=== PATIENT | female | born 1965 | race African-American/Black ===

== ENCOUNTER 2017-03-06 14:30 | Observation (INO) | payer BC ==
[2017-03-06] MEDS ORDERED: Nitroglycerin 0.4 MG TAB (25 Tab Bottle) ONE (14:50)
[2017-03-06 14:59] LABS: #Eosinphils 0.1 thou/uL (0.0-0.7); #Lymphocytes 2.5 thou/uL (1.20-3.40); #Monocytes 0.3 thou/uL (0.11-0.59); #Neutrophils 2.1 thou/uL (1.40-6.50); %Basophils 0.9 % (0.0-1.0); %Eosinophils 2.5 % (0.0-10.0); %Lymphocytes 49.7 % (21.0-51.0); %Monocytes 5.9 % (0.0-10.0); Hematocrit 35.5 % (36.0-47.0); Mean Platelet Volume 7.2 fL (7.4-10.4); Red Blood Cell (RBC) Count 4.07 mill/uL (4.20-5.40); White Blood Cell (WBC) Count 5.1 thou/uL (4.8-10.8)
[2017-03-06 15:24] LABS: ALT (SGPT) 27 U/L (8-55); AST (SGOT) 28 U/L (5-34); Alkaline Phosphatase 70 U/L (40-150); Anion Gap 15 mmol/L (10-20); BUN (Urea Nitrogen) 15 mg/dL (9.8-20.1); Bilirubin, Total 0.2 mg/dL (0.2-1.2); CK (CPK) 1013 U/L (29-168); Calc. Creatinine Clearance 0 mL/min (70-130); Calcium 9.4 mg/dL (7.8-10.44); Carbon Dioxide 22 mmol/L (22-29); Chloride 108 mmol/L (98-107); Estimated GFR-MDRD 78; Globulin 3.3 g/dL (2.4-3.5); Lipase 28 U/L (8-78); PTT 28.8 SEC (22.9-36.1); Protein, Total 7.5 g/dL (6.0-8.3); Prothrombin Time 13.3 SEC (12.0-14.7)
--- NOTE | 2017-03-06 15:26 | RAD ---
PORTABLE CHEST ONE VIEW: Date: 03-06-17 Time: 2:38 p.m. History: Chest pain. FINDINGS: Comparison is made with exam of 09-06-16. The heart size is normal. No focal areas of consolidation, pneumothorax, nidhi pulmonary edema or pl eural effusions seen. There are degenerative changes in the spine. IMPRESSION: No acute process. POS: [facility]
[2017-03-06 15:28] LABS: Troponin I Less than 0.010 ng/mL (< 0.028)
[2017-03-06] MEDS ORDERED: Nitroglycerin 2% Ointment 1 INCH/1 GM Packet ONE (15:35)
[2017-03-06] MEDS ORDERED: Ondansetron HCl/PF 4 MG/2 ML Vial ONE (15:35)
[2017-03-06] MEDS ORDERED: Morphine Sulfate 2 MG/ML SYRINGE ONE (15:37)
--- NOTE | 2017-03-06 17:04 | HP ---
PRIMARY CARE PHYSICIAN: Maria Luisa Lackey M.D. REASON FOR ADMISSION: Chest pain. HISTORY OF PRESENT ILLNESS: A 51-year-old -Congolese female with history of hypertension, obe sity, gastroesophageal reflux disease, who came to the emergency room with complaint of chest pain w hich is left-sided in location underneath of left breast. This pain started when she was at work. 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 Pain was getting worse with stretching of left upper extremity. She denies any radiation of pain to the left upper extremity, but whenever she was moving left upper extremity she was hurting in the left side of chest. She denies any associated n ausea, vomiting, or diaphoresis. She reports that whenever she takes a deep breath and she moves he r chest at that time she hurts. She denies any reproducibility of pain over left side. She denies any headache. She denies any focal motor symptoms. She denies any shortness of breath. She denies any palpitation, dizziness or syncope. Her intensity of pain when it started at that time it was a bout 8 x 10, but after emergency room treatment, the pain reduced to 4/10. When she presented to em ergency room, she was hypertensive with her blood pressure 218/135. Patient reports that she took a ll her blood pressure medicines today. Patient denies any fever or chills. She denies any cough. She denies any calf tenderness. She den ies any hemoptysis. She denies any orthopnea, PND or leg swelling. This patient had a negative stress test in August 2015, and this patient also had echocardiography in October 2015; at that time, it showed diastolic dysfunction. This patient's routine blood tests in the emergency room was unremarkable. She had elevated total CK. PAST MEDICAL HISTORY: Hypertension, poorly controlled, medication noncompliance, gastroesophageal r eflux disease, dyslipidemia, diastolic dysfunction, and obesity. PAST SURGICAL HISTORY: Hysterectomy, cholecystectomy, . PAST PSYCHIATRIC HISTORY: Reviewed and negative. REVIEW OF SYSTEMS: Please see my HPI for pertinent positives and negatives. All other review of sy stems reviewed and negative except as mentioned in the HPI. Constitutional: Weight loss or gain, ability to conduct usual activities. Skin: Rash, itching. Eyes: Double vision, pain. ENT/Mouth: Nose bleeding, neck stiffness, pain, tenderness. Cardiovascular: Palpitations, dyspnea on exertion, orthopnea. Respiratory: Shortness of breath, wheezing, cough, hemoptysis, fever or night sweats. Gastrointestinal: Poor appetite, abdominal pain, heartburn, nausea, vomiting, constipation, or diar gayathri. Genitourinary: Urgency, frequency, dysuria, nocturia. Musculoskeletal: Pain, swelling. Neurologic/Psychiatric: Anxiety, depression. Allergy/Immunologic: Skin rash, bleeding tendency. ALLERGIES: No known drug allergies. CURRENT HOME MEDICATIONS: Amlodipine 5 mg p.o. daily, Toprol 50 mg p.o. daily, aspirin 325 mg p.o. daily, Nexium 20 mg p.o. daily, albuterol sulfate inhalation as needed basis, clonidine 0.1 mg as ne eded basis for high blood pressure and tramadol 50 mg q.6 hourly p.r.n. for pain. EMERGENCY ROOM COURSE: Patient is given Zofran 4 mg, morphine 2 mg, nitropatch, IV fluids 500 mL, a spirin 324 mg and nitroglycerin sublingual. SOCIAL HISTORY: Patient lives in [place], [place]. 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 She denies any tobacco, alcohol or illicit drug abuse. FAMILY HISTORY: Hypertension runs among several family members. ALLERGIES: No known drug allergy. PHYSICAL EXAMINATION: VITAL SIGNS: On arrival, blood pressure 218/135, pulse 97, respiratory rate 18, temperature 98.1, s aturation 100% on room air and weight 102 kilograms. GENERAL: Patient is currently alert, awake, in no obvious acute distress. HEAD: Normocephalic, atraumatic. EYES: Pupils round, reactive to light. Extraocular muscles intact. ENT: Oropharynx within normal limits. Moist mucous membranes. No oral lesions. No pharyngeal tiffani thema. No exudate. NECK: Supple. Range of motion is normal. No meningeal signs of irritation. LUNGS: Clear to auscultation without any rhonchi or rales. CARDIAC: S1, S2 regular without any murmur. ABDOMEN: Soft, bowel sounds present, obesity present. No suprapubic tenderness. No organomegaly, no mass, no peritoneal sign. No guarding. No rigidity. No rebound. BACK EXAMINATION: Unremarkable. No CVA tenderness. EXTREMITIES: Upper extremity passive movement of all joints are normal. Lower extremities: No savannah ma. Good peripheral pulsation. SKIN: No skin rash. PSYCHIATRIC: Normal affect. HEMATOLOGICAL SYSTEM: No lymphadenopathy. NEUROLOGIC: Nonfocal examination. The patient moves all 4 limbs. Plantar bilateral flexor. SIGNIFICANT LABS: 1. EKG based on my review reveals normal sinus rhythm, nonspecific ST-T changes. Chest x-ray based on my review, no acute cardiopulmonary process. 2. CBC: WBC 5.1, hemoglobin 11.7, platelet 224,000. INR 1.0. 3. BMP: Sodium 141, potassium 3.7, chloride 108, carbon dioxide 22, BUN 15, creatinine 0.91, gluco se 108, calcium 9.4, magnesium 2.0. 4. LFT: AST 28, ALT 27, alkaline phosphatase 70. CK 1013, CK-MB 6.1, troponin less than 0.010. B DISPENSING AUDIOLOGIST 55.1, albumin 4.2, lipase 28. 5. Chest x-ray based on my review, no acute cardiopulmonary process. Stress test done in 08/2015 w as normal. Echocardiography showed diastolic dysfunction, October of 10/2015. ASSESSMENT AND PLAN/IMPRESSION: 1. Acute chest pain. This patient has left-sided chest pain, which is pleuritic in nature and romy ent's pain also gets worse with movement of the left upper extremity. This patient does not have an y reproducibility. This patient also had elevated total CK, but CK-MB and troponin is negative. EK G is not showing any acute ischemic changes. This patient's chest pain description is atypical and unexplained. At this point for further evaluation, we will do D-dimer and if D-dimer is abnormal, t hen we will do a CT angio to rule out thromboembolic disorder. We will do serial cardiac enzymes; a nd if serial cardiac enzymes are negative, then we will perform exercise Cardiolite stress test to r ule out underlying ischemia. We will check lipid profile tomorrow morning. Patient's chest pain is also explained by hypertension uncontrolled. 2. Hypertension with hypertensive urgency and hypertension chronically uncontrolled. At this point , I will start with amlodipine 5 mg p.o. daily; and if blood pressure is remaining high, then we margie l change to amlodipine to 10 mg p.o. daily. We will continue Toprol-XL 50 mg p[address] daily tomorrow af ter stress test. Meanwhile, we will use clonidine p.r.n. basis, hydralazine on p.r.n. basis. This patient may need a hydralazine upon discharge to better control her blood pressure. We will also co ntinue with lisinopril 10 mg p.o. daily. 3. Obesity. Dietary education given, weight loss education given. Healthy lifestyle measures disc ussed with the patient. 4. Anemia, normocytic, normochromic. We will continue with ferrous sulfate 325 mg p.o. daily. 5. Rhabdomyolysis. We will hold statin therapy. We will repeat total CK again tomorrow. Patient is given hydration orally. 6. Gastroesophageal reflux disease. We will continue Protonix 40 mg p.o. daily. 7. Deep venous thrombosis prophylaxis not needed because we are expecting discharge in 24 hours. 8. Gastrointestinal prophylaxis, Protonix 40 mg p.o. daily. CODE STATUS: Patient is full code. Disposition plan based on above-mentioned investigation results within 24 hours. Plan of care discu ssed with the patient in detail.
[2017-03-06] MEDS ORDERED: cloNIDine HCl 0.1 MG TAB PO PRN (17:40)
[2017-03-06] MEDS ORDERED: Artificial Tears 18 DROP/0.9 ML EA EYE PRN (17:40)
[2017-03-06] MEDS ORDERED: Senokot 8.6 MG TAB PO PRN (17:40)
[2017-03-06] MEDS ORDERED: Acetaminophen 325 MG TAB PO PRN (17:40)
[2017-03-06] MEDS ORDERED: Loperamide HCl 2 MG CAP PO PRN (17:40)
[2017-03-06] MEDS ORDERED: Loratadine 10 MG TAB PO PRN (17:40)
[2017-03-06] MEDS ORDERED: Milk Of Magnesia 30 ML UDCUP PO PRN (17:40)
[2017-03-06] MEDS ORDERED: Eucerin (Mineral Oil/Petrolatum,White) 30 gm Jar TOP PRN (17:40)
[2017-03-06] MEDS ORDERED: Sodium Chloride 0.65% Nasal 44 ML BOT EA NARE PRN (17:40)
[2017-03-06] MEDS ORDERED: Nitroglycerin 0.4 MG TAB (25 Tab Bottle) SL PRN (17:40)
[2017-03-06] MEDS ORDERED: Zolpidem Tartrate 5 MG TAB PO PRN (17:40)
[2017-03-06] MEDS ORDERED: Diabetic Tussin 200 MG/10 ML UDCUP PO PRN (17:40)
[2017-03-06] MEDS ORDERED: Mag-Al 1200 mg/1200 mg/30 ML UDCUP PO PRN (17:40)
[2017-03-06 17:51] VITALS: BMI 32.1
[2017-03-06 18:38] LABS: Troponin I Less than 0.010 ng/mL (< 0.028)
[2017-03-06] MEDS: HYDROcodone/Acetaminophen 10/325 mg Tablet PO PRN ×2 (20:06→23:45)
[2017-03-06] MEDS: Ondansetron HCl/PF 4 MG/2 ML Vial IVP PRN (20:26)
[2017-03-06 21:35] LABS: Troponin I Less than 0.010 ng/mL (< 0.028)
[2017-03-06] MEDS ORDERED: Ondansetron ODT 4 MG TAB PO PRN (21:45)
[2017-03-07] MEDS: Nitroglycerin 2% Ointment 1 INCH/1 GM Packet TOP SCH ×3 (00:50→14:42)
--- NOTE | 2017-03-07 07:58 | PDOC.PN ---
- Subjective Encounter Start Date: 03/07/17 Encounter Start Time: 07:56 Subjective: CP resolved -: No SHINE/palpitations/SOB/nausea/diaphoresis - Objective Resuscitation Status: Resuscitation Status FULL:Full Resuscitation MAR Reviewed: Yes Vital Signs & Weight: Vital Signs (12 hours) Temp Pulse Resp BP BP Pulse Ox 03/07/17 07:10 97.9 F 87 16 136/83 98 03/07/17 04:00 98.7 F 98 16 132/71 97 03/06/17 23:20 97.8 F 90 16 168/90 H 96 03/06/17 22:37 96 03/06/17 21:43 89 205/110 H 03/06/17 21:41 89 205/110 H 96 03/06/17 20:07 91 199/114 H 03/06/17 20:06 97.6 F 91 18 Weight Weight 181 lb 4.8 oz I&O: 03/06/17 03/07/17 03/08/17 06:59 06:59 06:59 Intake Total 802 Output Total 1500 Balance -698 Result Diagrams: 03/06/17 14:50 03/06/17 14:50 Phys Exam - Physical Examination Constitutional: NAD HEENT: moist MMs, sclera anicteric Neck: no nodes, no JVD Respiratory: no wheezing, no rales, no rhonchi Cardiovascular: no significant murmur, no rub Gastrointestinal: soft, non-tender, positive bowel sounds Neurological: non-focal Psychiatric: normal affect Skin: no rash, normal turgor Dx/Plan (1) Chest pain Code(s): R07.9 - CHEST PAIN, UNSPECIFIED Status: Acute (2) Hypertensive urgency Code(s): I10 - ESSENTIAL (PRIMARY) HYPERTENSION Status: Acute (3) Rhabdomyolysis Code(s): M62.82 - RHABDOMYOLYSIS Status: Acute - Plan Hypertensive Urgency * likely responsible for chest pain * added norvasc * BP better today Chest pain * likely 2/2 hypertensive urgency * serial cardiac enzymes negative * D dimer wnl (ruled out PE) * check Stress test Rhabdomyolysis * CK very slowly trending down * give 1L NS IVF bolus Dispo: Await stress test results.
[2017-03-07] MEDS ORDERED: Lisinopril 10 MG TAB PO SCH (09:00)
[2017-03-07] MEDS: Aspirin 325 MG TAB PO SCH (10:39)
[2017-03-07] MEDS: Sodium Chloride 0.9% 1,000 ML IV SCH (10:39)
--- NOTE | 2017-03-07 12:23 | NM ---
NUCLEAR MEDICINE CARDIAC STRESS TEST WITH EJECTION FRACTION: HISTORY: Chest pain. Hypertension. Hyperlipidemia. TECHNIQUE: A stress only nuclear medicine cardiac perfusion examination was performed using 33 millicuries of t echnetium 99m sestamibi and adenosine. FINDINGS: The [id number]-[id number] images show no perfusion defects with stress. Gated images show normal wall motion with an ejection fraction of 42%. EDV is 113 mL. LHR is 0.5. IMPRESSION: 1. No perfusion defects with stress. 2. Slightly depressed ejection fraction. POS: [facility]
[2017-03-07] MEDS: HYDROcodone/Acetaminophen 10/325 mg Tablet PO PRN ×2 (14:47→19:19)
[2017-03-07] MEDS ORDERED: ADENOSINE 60 MG/20 ML VIAL ONE (17:09)
[2017-03-07] MEDS: Ondansetron HCl/PF 4 MG/2 ML Vial IVP PRN (19:50)
--- NOTE | 2017-03-07 22:49 | CON ---
DATE OF CONSULTATION: 03/07/2017 REASON FOR CONSULTATION: Chest pain. HISTORY OF PRESENT ILLNESS: Ms. Busch is a pleasant 51-year-old woman. She has previously been see n and evaluated here in the hospital initially by Dr. Sher. Patient has had several episodes of hos pitalization for chest pain, seen [place] [address] Sher. The pain was thought to be atypical at that time. Patient also has history of hypertension. The patient has been having pain underneath the left breast for several days and finally came to the emergency room, where she has been admitted and evaluated as will be outlined below with rick renteria. PAST MEDICAL HISTORY: She has multiple episodes of admission for chest pain. She has undergone str ess testing in the past, which showed some decrease in ejection fraction without focal ischemia. I do not think she has ever had a heart catheterization that I can tell. MEDICATIONS PRIOR TO ADMISSION: 1. Lisinopril. 2. Aspirin. 3. Amlodipine. 4. Metoprolol. ALLERGIES: None known. SOCIAL HISTORY: No alcohol or tobacco. FAMILY HISTORY: Negative for heart disease at a young age. PHYSICAL EXAMINATION: GENERAL: A pleasant 51-year-old woman in no distress. VITAL SIGNS: Blood pressure is 175/98; pulse 90, it is regular. LUNGS: Clear. CARDIAC: Normal S1, normal S2. ABDOMEN: Soft, nontender. EXTREMITIES: No clubbing, cyanosis or edema. SKIN: Warm and dry. PERTINENT LABORATORY AND X-RAY FINDINGS: Potassium 3.7, CPK MB 6.1. Total CK was 1013, but the tro ponin levels were negative. LDL cholesterol is 80. Nuclear medicine stress test revealed no focal ischemia, but the ejection fraction is diminished at 42%. ASSESSMENT: 1. Hypertension with hypertensive heart disease. 2. Recurrent chest pain. 3. Nuclear medicine stress test showing depressed left ventricular function. PLAN: Dr. Sher to resume patient's care tomorrow and to decide whether further intervention would b e appropriate and whether catheterization versus continued observation would be appropriate.
[2017-03-08] MEDS: Sodium Chloride 0.9% 1,000 ML IV SCH (00:30)
[2017-03-08] MEDS: Nitroglycerin 2% Ointment 1 INCH/1 GM Packet TOP SCH ×2 (00:30→08:13)
[2017-03-08 04:23] VITALS: TEMP 98.9
[2017-03-08 06:25] LABS: Anion Gap 13 mmol/L (10-20); BUN (Urea Nitrogen) 11 mg/dL (9.8-20.1); Calc. Creatinine Clearance 115 mL/min (70-130); Calcium 9.2 mg/dL (7.8-10.44); Carbon Dioxide 20 mmol/L (22-29); Chloride 108 mmol/L (98-107); Estimated GFR-MDRD Greater than 90; Magnesium 2.3 mg/dL (1.6-2.6)
--- NOTE | 2017-03-08 07:34 | PDOC.PN ---
- Subjective Encounter Start Date: 03/08/17 Encounter Start Time: 07:33 - Objective Resuscitation Status: Resuscitation Status FULL:Full Resuscitation MAR Reviewed: Yes Vital Signs & Weight: Vital Signs (12 hours) Temp Pulse Resp BP BP Pulse Ox 03/08/17 04:07 98.9 F 96 16 159/84 H 99 03/07/17 23:13 98.5 F 98 16 159/92 H 93 L 03/07/17 21:04 107 H 18 162/93 H 99 Weight Weight 177 lb 9.6 oz I&O: 03/07/17 03/08/17 03/09/17 06:59 06:59 06:59 Intake Total 802 2949 Output Total 1500 1700 Balance -698 1249 Result Diagrams: 03/06/17 14:50 03/08/17 05:24 Phys Exam - Physical Examination Constitutional: NAD HEENT: moist MMs, sclera anicteric Neck: no nodes, no JVD Respiratory: no wheezing, no rales Cardiovascular: no significant murmur, no rub Gastrointestinal: soft, non-tender, positive bowel sounds Neurological: non-focal Skin: no rash, normal turgor Dx/Plan (1) Chest pain Code(s): R07.9 - CHEST PAIN, UNSPECIFIED Status: Acute (2) Hypertensive urgency Code(s): I10 - ESSENTIAL (PRIMARY) HYPERTENSION Status: Acute (3) Rhabdomyolysis Code(s): M62.82 - RHABDOMYOLYSIS Status: Acute - Plan Hypertensive Urgency * likely responsible for chest pain * will increase Lisinopril to 20mg daily * BP better today Chest pain * likely 2/2 hypertensive urgency * serial cardiac enzymes negative * D dimer wnl (ruled out PE) * Stress test revealed a depressed EF of 42% - appreciate cardiology input Rhabdomyolysis * CK very slowly trending down - recheck in AM * s/p IVFs Dispo: Await stress test results.
[2017-03-08] MEDS ORDERED: Lisinopril 10 MG TAB PO SCH (07:36)
[2017-03-08 07:56] VITALS: BP 147/83
[2017-03-08] MEDS: HYDROcodone/Acetaminophen 10/325 mg Tablet PO PRN (08:35)
[2017-03-08] MEDS: Aspirin 325 MG TAB PO SCH (08:35)
== END 2017-03-08 10:31 | disposition home or self-care (01) ==
LOC: ERS 14:30 → 2SW 15:47
PROVIDERS: ADMIT Internal Medicine; ATTEND Internal Medicine
DX: R07.9 Chest pain, unspecified (principal); I16.0 Hypertensive urgency; I11.9 Hypertensive heart disease without heart failure; K21.9 Gastro-esophageal reflux disease without esophagitis; E66.9 Obesity, unspecified; D64.9 Anemia, unspecified; M62.82 Rhabdomyolysis; E78.5 Hyperlipidemia, unspecified; Z68.31 Body mass index [BMI] 31.0-31.9, adult; Z79.82 Long term (current) use of aspirin; Z79.899 Other long term (current) drug therapy; Z91.14 Patient's other noncompliance with medication regimen
CPT/HCPCS: 36415; 71010; 78452; 80048; 80053; 80061; 82550; 82553; 83690; 83735; 83880; 84484; 85025; 85379; 85610; 85730; 93005; 93017; 94760; 96361; 96374; 96375; 96376; A4216; A9500; G0378; J0153; J0360; J2270; J2405

== ENCOUNTER 2017-09-06 09:13 | Emergency (ER) | payer BC ==
[2017-09-06] MEDS ORDERED: Acetaminophen 500 MG TAB ONE (09:42)
[2017-09-06] MEDS ORDERED: Nitroglycerin 0.4 MG TAB (25 Tab Bottle) ONE (09:42)
[2017-09-06] MEDS ORDERED: Aspirin 325 MG TAB ONE (09:42)
[2017-09-06 09:52] LABS: #Lymphocytes 1.4 thou/uL (1.20-3.40); #Monocytes 0.4 thou/uL (0.11-0.59); #Neutrophils 8.2 thou/uL (1.40-6.50); %Basophils 0.2 % (0.0-1.0); %Lymphocytes 13.7 % (21.0-51.0); %Monocytes 4.3 % (0.0-10.0); %Neutrophils 81.8 % (42.0-75.0); Hemoglobin 13.2 g/dL (12.0-16.0); Mean Corpuscular HGB CONC 33.8 g/dL (32.0-36.0); Mean Corpuscular Hemoglobin 28.6 pg (27.0-31.0); Mean Corpuscular Volume 84.8 fl (81.0-99.0); Platelet Count 274 thou/uL (130-400); Red Blood Cell (RBC) Count 4.62 mill/uL (4.20-5.40)
[2017-09-06 10:14] LABS: ALT (SGPT) 27 U/L (8-55); AST (SGOT) 19 U/L (5-34); Albumin 4.7 g/dL (3.5-5.0); Alkaline Phosphatase 81 U/L (40-150); Anion Gap 13 mmol/L (10-20); BUN (Urea Nitrogen) 14 mg/dL (9.8-20.1); Bilirubin, Total 0.3 mg/dL (0.2-1.2); Calc. Creatinine Clearance 0 mL/min (70-130); Calcium 9.9 mg/dL (7.8-10.44); Carbon Dioxide 20 mmol/L (22-29); Chloride 109 mmol/L (98-107); Estimated GFR-MDRD 85; Globulin 3.7 g/dL (2.4-3.5); Glucose 132 mg/dL (70-105); Potassium 4.1 mmol/L (3.5-5.1); Protein, Total 8.4 g/dL (6.0-8.3); Sodium 138 mmol/L (136-145)
[2017-09-06 10:18] LABS: CKMB 2.8 ng/mL (0-6.6); Troponin I Less than 0.010 ng/mL (< 0.028)
--- NOTE | 2017-09-06 10:34 | RAD ---
CHEST ONE VIEW: History: Chest pain. History: 03-06-17 FINDINGS: Lungs are clear. No pneumothorax or effusion. Cardiac silhouette and mediastinal contours are within normal limits. IMPRESSION: No acute intrathoracic abnormality. POS: [facility]
[2017-09-06 12:46] LABS: CKMB 2.4 ng/mL (0-6.6); Troponin I Less than 0.010 ng/mL (< 0.028)
--- NOTE | 2017-10-04 15:05 | EKG ---
Test Reason : CHEST PAIN Blood Pressure : / mmHG Vent. Rate : 107 BPM Atrial Rate : 107 BPM P-R Int : 174 ms QRS Dur : 098 ms QT Int : 354 ms P-R-T Axes : 053 008 003 degrees QTc Int : 472 ms Sinus tachycardia Otherwise normal ECG Confirmed by ROSALINDA PIERSON ([id number]), videotape editor LUCIO BEAN ([id number]) on 10/04/2017 3:04:20 PM Referred By: MONA PIERSON Confirmed By:ROSALINDA PIERSON
== END 2017-09-06 13:16 | disposition home or self-care (01) ==
LOC: ERS 09:13
DX: R07.2 Precordial pain (principal); I10 Essential (primary) hypertension; K21.9 Gastro-esophageal reflux disease without esophagitis; Z79.82 Long term (current) use of aspirin; Z79.899 Other long term (current) drug therapy
CPT/HCPCS: 36415; 71045; 80053; 82553; 84484; 85025; 85379; 93005

== ENCOUNTER 2017-09-24 09:11 | Emergency (ER) | payer BC ==
[2017-09-24 09:52] LABS: #Eosinphils 0.1 thou/uL (0.0-0.7); #Lymphocytes 1.9 thou/uL (1.20-3.40); #Monocytes 0.2 thou/uL (0.11-0.59); #Neutrophils 2.5 thou/uL (1.40-6.50); %Basophils 0.4 % (0.0-1.0); %Eosinophils 1.4 % (0.0-10.0); %Neutrophils 53.3 % (42.0-75.0); Hemoglobin 12.9 g/dL (12.0-16.0); Mean Corpuscular Hemoglobin 27.9 pg (27.0-31.0); Mean Corpuscular Volume 87.2 fl (81.0-99.0); Mean Platelet Volume 7.2 fL (7.4-10.4); Platelet Count 268 thou/uL (130-400); RBC Distribution Width 11.8 % (11.5-14.5); Red Blood Cell (RBC) Count 4.63 mill/uL (4.20-5.40); White Blood Cell (WBC) Count 4.7 thou/uL (4.8-10.8)
[2017-09-24 10:12] LABS: ALT (SGPT) 33 U/L (8-55); AST (SGOT) 23 U/L (5-34); Albumin 4.9 g/dL (3.5-5.0); Alkaline Phosphatase 89 U/L (40-150); Anion Gap 13 mmol/L (10-20); BUN (Urea Nitrogen) 15 mg/dL (9.8-20.1); Bilirubin, Total 0.3 mg/dL (0.2-1.2); CK (CPK) 554 U/L (29-168); Calc. Creatinine Clearance 0 mL/min (70-130); Carbon Dioxide 24 mmol/L (22-29); Chloride 104 mmol/L (98-107); Estimated GFR-MDRD 85; Globulin 3.7 g/dL (2.4-3.5); Glucose 91 mg/dL (70-105); Lipase 25 U/L (8-78); Potassium 3.9 mmol/L (3.5-5.1); Protein, Total 8.6 g/dL (6.0-8.3); Sodium 137 mmol/L (136-145)
[2017-09-24 10:15] LABS: CKMB 4.9 ng/mL (0-6.6); Troponin I Less than 0.010 ng/mL (< 0.028)
== END 2017-09-24 10:29 | disposition home or self-care (01) ==
LOC: ERS 09:11
DX: R07.89 Other chest pain (principal); I10 Essential (primary) hypertension; K21.9 Gastro-esophageal reflux disease without esophagitis; Z79.82 Long term (current) use of aspirin; Z79.899 Other long term (current) drug therapy
CPT/HCPCS: 80053; 82553; 83690; 84484; 85025; 93005; 94760

== ENCOUNTER 2017-10-29 09:14 | Outpatient (CLI) | payer BC | END 2017-10-29 09:15 | disposition home or self-care (01) | LOC: BICMAMMO 09:14 | PROVIDERS: ATTEND Specialist | DX: Z12.31 Encounter for screening mammogram for malignant neoplasm of breast (principal); R92.1 Mammographic calcification found on diagnostic imaging of breast | CPT/HCPCS: 77063; 77067 ==

== ENCOUNTER 2018-09-26 13:12 | Emergency (ER) | payer BC ==
[2018-09-26 14:03] LABS: #Basophils 0.1 thou/uL (0.0-0.2); #Eosinphils 0.1 thou/uL (0.0-0.7); #Lymphocytes 2.6 thou/uL (1.20-3.40); #Monocytes 0.5 thou/uL (0.11-0.59); #Neutrophils 3.5 thou/uL (1.40-6.50); %Basophils 0.8 % (0.0-1.0); %Eosinophils 1.6 % (0.0-10.0); %Lymphocytes 38.5 % (21.0-51.0); %Monocytes 7.5 % (0.0-10.0); %Neutrophils 51.5 % (42.0-75.0); Hemoglobin 12.4 g/dL (12.0-16.0); Mean Corpuscular HGB CONC 33.5 g/dL (32.0-36.0); Mean Corpuscular Hemoglobin 28.4 pg (27.0-31.0); Mean Corpuscular Volume 84.9 fL (78.0-98.0); Mean Platelet Volume 7.4 fL (7.4-10.4); Platelet Count 239 thou/uL (130-400); RBC Distribution Width 11.8 % (11.5-14.5); Red Blood Cell (RBC) Count 4.35 mill/uL (4.20-5.40); White Blood Cell (WBC) Count 6.7 thou/uL (4.8-10.8)
[2018-09-26 14:18] LABS: ALT (SGPT) 24 U/L (8-55); AST (SGOT) 23 U/L (5-34); Albumin 4.6 g/dL (3.5-5.0); Alkaline Phosphatase 86 U/L (40-150); Anion Gap 15 mmol/L (10-20); BUN (Urea Nitrogen) 12 mg/dL (9.8-20.1); Bilirubin, Total 0.2 mg/dL (0.2-1.2); CK (CPK) 495 U/L (29-168); Calc. Creatinine Clearance 0 mL/min (70-130); Calcium 9.7 mg/dL (7.8-10.44); Carbon Dioxide 23 mmol/L (22-29); Chloride 105 mmol/L (98-107); Digoxin Less than 0.15 ng/mL (0.8-2.0); Estimated GFR-MDRD 85; Globulin 3.1 g/dL (2.4-3.5); Glucose 86 mg/dL (70-105); Lipase 19 U/L (8-78); Potassium 4.3 mmol/L (3.5-5.1); Protein, Total 7.7 g/dL (6.0-8.3); Sodium 139 mmol/L (136-145)
--- NOTE | 2018-09-26 14:19 | RAD ---
PORTABLE CHEST: Date: 09/26/18 HISTORY: Chest pain. FINDINGS: The lungs are clear. No infiltrate or vascular congestion. Heart size upper normal. IMPRESSION: No acute findings. POS: [facility]
[2018-09-26] MEDS ORDERED: Acetaminophen 500 MG TAB ONE (14:55)
== END 2018-09-26 16:51 | disposition home or self-care (01) ==
LOC: ERS 13:12
DX: J06.9 Acute upper respiratory infection, unspecified (principal); R07.81 Pleurodynia; I10 Essential (primary) hypertension; K21.9 Gastro-esophageal reflux disease without esophagitis
CPT/HCPCS: 36415; 71045; 80053; 80162; 82550; 83690; 84484; 85025; 93005; 94640

== ENCOUNTER 2018-10-04 11:20 | Emergency (ER) | payer BC ==
[2018-10-04 12:41] LABS: Bilirubin Negative (Negative); Blood, Urine Trace (Negative); Clarity CLOUDY (Clear); Glucose, Urine (Dipstick) Negative (Negative); Leukocyte Moderate (Negative); Nitrite Positive (Negative); Protein, Urine (Dipstick) 30 mg/dL (Neg-Trace); Specific Gravity, Urine 1.025 (1.002-1.036); pH, Urine 5.5 (5.0-9.0)
[2018-10-04 12:43] LABS: Bacteria/HPF 4+ HPF (None Seen); Hyaline Casts/LPF 0-3 HYALINE CAST LPF (0-3 Hyaline); Pathc Cast-AUWi Flag 0.95 (0-2.49)
[2018-10-04] MEDS ORDERED: Azithromycin 250 MG TAB ONE (13:39)
[2018-10-04] MEDS ORDERED: cefTRIAXone\\ROCEPHIN 250 MG VIAL ONE (13:39)
[2018-10-04] MEDS ORDERED: Lidocaine 1% PF 5 ML VIAL ONE (13:40)
[2018-10-06 19:02] LABS: Chlamydia by PCR Not Detected (NotDetected); GC by PCR Not Detected (NotDetected)
== END 2018-10-04 14:51 | disposition home or self-care (01) ==
LOC: ERS 11:20
DX: A59.01 Trichomonal vulvovaginitis (principal); N39.0 Urinary tract infection, site not specified; I10 Essential (primary) hypertension; K21.9 Gastro-esophageal reflux disease without esophagitis; N76.0 Acute vaginitis
CPT/HCPCS: 81003; 81015; 87077; 87086; 87186; 87480; 87491; 87510; 87591; 87660; 96372; J0696; J2001

== ENCOUNTER 2019-02-25 16:15 | Observation (INO) | payer SELFPAY ==
[2019-02-25 16:35] LABS: #Basophils 0.1 thou/uL (0.0-0.2); #Eosinphils 0.1 thou/uL (0.0-0.7); #Lymphocytes 2.8 thou/uL (1.20-3.40); #Monocytes 0.3 thou/uL (0.11-0.59); #Neutrophils 2.4 thou/uL (1.40-6.50); %Basophils 1.3 % (0.0-1.0); %Eosinophils 1.8 % (0.0-10.0); %Lymphocytes 49.3 % (21.0-51.0); %Neutrophils 41.6 % (42.0-75.0); Hemoglobin 12.9 g/dL (12.0-16.0); Mean Corpuscular HGB CONC 34.4 g/dL (32.0-36.0); Mean Corpuscular Hemoglobin 28.9 pg (27.0-31.0); Mean Platelet Volume 7.7 fL (7.4-10.4); Platelet Count 237 thou/uL (130-400); RBC Distribution Width 12.1 % (11.5-14.5); Red Blood Cell (RBC) Count 4.45 mill/uL (4.20-5.40); White Blood Cell (WBC) Count 5.7 thou/uL (4.8-10.8)
[2019-02-25] MEDS ORDERED: cloNIDine 0.1 MG TAB ONE (16:43)
--- NOTE | 2019-02-25 16:55 | RAD ---
XR Chest 1 View Portable HISTORY: Chest pain COMPARISON: 09/26/2018 FINDINGS: The heart size is normal. The lungs are well expanded without focal areas of consolidation, pneumothorax or pleural effusions. IMPRESSION: No radiographic evidence of acute cardiopulmonary process.
[2019-02-25 16:56] LABS: ALT (SGPT) 35 U/L (8-55); AST (SGOT) 34 U/L (5-34); Albumin 4.7 g/dL (3.5-5.0); Alkaline Phosphatase 78 U/L (40-150); Anion Gap 11 mmol/L (10-20); BUN (Urea Nitrogen) 16 mg/dL (9.8-20.1); Bilirubin, Total 0.3 mg/dL (0.2-1.2); Calc. Creatinine Clearance 0 mL/min (70-130); Calcium 10.3 mg/dL (7.8-10.44); Carbon Dioxide 26 mmol/L (22-29); Chloride 106 mmol/L (98-107); Estimated GFR-MDRD 77; Globulin 3.3 g/dL (2.4-3.5); Glucose 79 mg/dL (70-105); Lipase 28 U/L (8-78); Potassium 3.8 mmol/L (3.5-5.1); Sodium 139 mmol/L (136-145)
[2019-02-25 17:18] LABS: CKMB 5.6 ng/mL (0-6.6)
[2019-02-25] MEDS ORDERED: Metoprolol Tartrate 5 MG/5 ML VIAL ONE (17:47)
[2019-02-25 17:52] LABS: Bacteria/HPF None Seen HPF (None Seen); Bilirubin Negative (Negative); Blood, Urine Negative (Negative); Clarity Clear (Clear); Glucose, Urine (Dipstick) Normal (Negative); Leukocyte 250 Leu/uL (Negative); Nitrite Negative (Negative); Protein, Urine (Dipstick) Negative (Neg-Trace); RBC/HPF 0-3 HPF (0-3); Urobilinogen Normal mg/dL (Less than 2)
[2019-02-25] MEDS ORDERED: hydrALAZINE 20 MG/ML VIAL ONE (18:18)
[2019-02-25 20:16] LABS: Troponin I 0.031 ng/mL (< 0.028)
[2019-02-25] MEDS ORDERED: Aspirin 325 MG TAB ONE (20:31)
[2019-02-25] MEDS ORDERED: Ondansetron PF 4 MG/2 ML Vial IVP PRN (22:09)
[2019-02-25] MEDS ORDERED: Ondansetron ODT 4 MG TAB PO PRN (22:09)
[2019-02-25] MEDS ORDERED: Acetaminophen 650 MG Suppository PR PRN (22:09)
[2019-02-25] MEDS ORDERED: hydrALAZINE 20 MG/ML VIAL SLOW IVP PRN (22:10)
[2019-02-25 22:17] VITALS: BMI 31.3
[2019-02-25] MEDS ORDERED: Lisinopril 20 MG TAB PO SCH (22:45)
[2019-02-25] MEDS ORDERED: Metoprolol Tartrate 25 MG TAB PO SCH (22:45)
[2019-02-25] MEDS: cloNIDine 0.1 MG TAB PO PRN (23:00)
[2019-02-25 23:02] LABS: Troponin I 0.012 ng/mL (< 0.028)
[2019-02-25] MEDS ORDERED: Sodium Chloride 0.9% 1,000 ML IV SCH (23:30)
--- NOTE | 2019-02-25 23:41 | HP ---
PRIMARY CARE PHYSICIAN: The patient goes to [facility]. CODE STATUS: Full code. TIME OF EVALUATION: 10L00 p.m. CHIEF COMPLAINT: Low back pain. HISTORY OF PRESENT ILLNESS: This is a 53-year-old female patient with past medical history of hypertension, diastolic heart failure seen on the echo and history reported by patient, also history of GERD, came to the hospital after having left-sided pain. The patient reported pain in the left lower abdomen, left flank pain and also radiates to the shoulders occasionally with no clear triggers, no alleviating factors, the patient had the pain on and off for the past for more than a month, but today has been getting worse. When severe, the patient is 8/10, with no clear triggers, pain gets worse with no pain occasionally. Symptoms have been gradually getting worse. REVIEW OF SYSTEMS: All other systems were reviewed and negative except for the findings mentioned above. PAST MEDICAL HISTORY: As mentioned in the HPI. SURGICAL HISTORY: x2, hysterectomy and cholecystectomy. PSYCHIATRIC HISTORY: No psych history. SOCIAL HISTORY: No alcohol. No drugs. No smoking history. Lives at home with family. FAMILY HISTORY: Reviewed (No significant history reported for current admission). KNOWN ALLERGIES: No known drug allergies. REPORTED MEDICATIONS: Amlodipine, aspirin, clonidine and lisinopril. PHYSICAL EXAMINATION: VITAL SIGNS: On presentation, blood pressure 221/125, heart rate , respiratory rate was 16, temperature 98.1, pain was 8/10. Oxygen saturation 98% on room air. The blood pressure has been still uncontrolled even after hydralazine and clonidine. GENERAL APPEARANCE: The patient is alert and oriented, in no acute distress. HEENT: Eyes, normal conjunctivae. Moist oral mucosa. Anicteric. No JVD. RESPIRATORY: Bilateral air entry. No rales. No wheezes. Symmetric expansion. CARDIOVASCULAR: Normal rate and regular rhythm. No murmurs. No edema. The patient hypertensive. ABDOMEN: Soft. Normal bowel sounds. No distention. MUSCULOSKELETAL: Baseline range of motion and strength. SKIN: Warm and intact. No pallor. No rash. No redness. Capillary refill seems to be intact. NEURO: No evidence of any new focal weakness. Cranial nerves seems to be intact. PSYCH: The patient is in good mood. No anxiety. Optimal judgment. No mention of distress due to the event. DIAGNOSTIC DATA: EKG was reviewed. The patient has moderate voltage criteria for LVH, prolonged QT of 489. Chest x-ray showed no radiographic evidence of acute cardiopulmonary process. LABORATORY DATA: Reviewed. The patient has white count 5.7, hemoglobin 12.9, MCV 84, platelet count 237. Chemistry; sodium 139, potassium 3.8, chloride 106, carbon dioxide 26, anion gap 11, BUN 16, creatinine 0.92, GFR 77, glucose 79, calcium 10.3, total bilirubin 0.3, AST 34, ALT 35, alkaline phosphatase 78. Troponin 0.031, the previous 1 was 0.03. Albumin 4.7, globulin 3.3, albumin globulin ratio is 1.4, lipase 28. Urine was done. There was some leukocyte esterase and white count is mildly elevated, 4-6. ASSESSMENT AND PLAN: The patient will be placed in the hospital with following medical problems: 1. Hypertensive emergency. The patient presented with systolic blood pressure in the 200s and diastolic in the 110s. There is some leakage of troponin. The blood pressure got into control with initial approach and symptoms have gotten better, however, this is coming back up, we will restart home medications. We will continue to monitor and we will adjust treatment as needed. The patient did respond well on initial approach in ER. 2. History of congestive heart failure with diastolic dysfunction grade 1 seen on the echo. The last echo was in 2015. The patient would benefit from a new echo at this point. We will reconcile home medications and adjust treatment as needed. 3. Possible non ST elevation myocardial infarction type 2 due to troponin leakage of 0.031. This could be secondary to hypertensive emergency controlled underlying condition. 4. Left-sided back and chest pain. No clear etiology. However, this is linked to very high blood pressure, both systolic and diastolic. We will do a CT dissection protocol to rule out dissection. We will treat pain accordingly. 5. Asymptomatic pyuria. The patient has some mild white count in the urine without urinary symptoms. We will not treat at this point. 6. History of gastroesophageal reflux disease. Reconcile home medications. 7. Deep venous thrombosis prophylaxis. Job ID: [id number]
--- NOTE | 2019-02-25 23:52 | RAD ---
EXAM: 3 views of the lumbosacral spine HISTORY: Low back pain COMPARISON: 12/17/2013 FINDINGS: 3 views of the lumbosacral spine shows normal height and alignment of the vertebral bodies and intervertebral discs without fracture or subluxation. Mild posterior facet arthrosis is seen in the lower lumbosacral spine. The sacroiliac joints are unremarkable. IMPRESSION: Mild degenerative changes of the lumbar spine without acute osseous abnormality.
--- NOTE | 2019-02-26 00:02 | CT ---
EXAM: CTA of the chest and abdomen HISTORY: Chest pain and back pain COMPARISON: None TECHNIQUE: Multiple contiguous axial images were obtained a CTA of the chest and abdomen with contras t per aortic dissection protocol. Sagittal and coronal 3-D MIP reformats were performed. FINDINGS: HEART: Normal in size without focal cardiac abnormality. PULMONARY ARTERIES: Normal in caliber without filling defects to suggest pulmonary emboli. MEDIASTINUM: No hilar or mediastinal lymphadenopathy. LUNGS: No focal infiltrates or masses. PLEURAL SPACE: No pleural effusion or pneumothorax. CHEST AND ABDOMINAL WALL SOFT TISSUES: Unremarkable LIVER: Fatty infiltration. GALLBLADDER: Absent. KIDNEYS: Unremarkable. SPLEEN: Unremarkable. PANCREAS: Unremarkable. BOWEL: Unremarkable. RETROPERITONEUM: No lymphadenopathy BONES: Degenerative changes in the spine. ASCENDING THORACIC AORTA: Normal caliber without evidence of dissection or aneurysmal dilatation. DESCENDING THORACIC AORTA: Normal caliber without evidence of dissection or aneurysmal dilatation. ABDOMINAL AORTA: Normal caliber without evidence of dissection or aneurysmal dilatation. CELIAC TRUNK: Patent SMA: Patent YAMILE: Patent RENAL ARTERIES: A right single renal artery and 2 left renal arteries without significant atheroscler otic disease IMPRESSION: 1. No evidence of thoracic or abdominal aortic aneurysm or dissection 2. Fatty liver
[2019-02-26 06:24] LABS: #Eosinphils 0.1 thou/uL (0.0-0.7); #Lymphocytes 1.9 thou/uL (1.20-3.40); #Monocytes 0.4 thou/uL (0.11-0.59); #Neutrophils 1.7 thou/uL (1.40-6.50); %Basophils 0.5 % (0.0-1.0); %Eosinophils 2.3 % (0.0-10.0); %Lymphocytes 45.6 % (21.0-51.0); %Monocytes 10.2 % (0.0-10.0); %Neutrophils 41.4 % (42.0-75.0); Hemoglobin 12.7 g/dL (12.0-16.0); Mean Corpuscular HGB CONC 33.5 g/dL (32.0-36.0); Mean Corpuscular Hemoglobin 29.2 pg (27.0-31.0); Mean Corpuscular Volume 86.9 fL (78.0-98.0); Mean Platelet Volume 7.8 fL (7.4-10.4); Platelet Count 212 thou/uL (130-400); RBC Distribution Width 12.3 % (11.5-14.5); Red Blood Cell (RBC) Count 4.34 mill/uL (4.20-5.40); White Blood Cell (WBC) Count 4.1 thou/uL (4.8-10.8)
[2019-02-26 06:39] LABS: Anion Gap 11 mmol/L (10-20); BUN (Urea Nitrogen) 15 mg/dL (9.8-20.1); Calc. Creatinine Clearance 94 mL/min (70-130); Calcium 9.5 mg/dL (7.8-10.44); Carbon Dioxide 23 mmol/L (22-29); Chloride 106 mmol/L (98-107); Estimated GFR-MDRD 83; Glucose 89 mg/dL (70-105); Sodium 136 mmol/L (136-145)
[2019-02-26] MEDS: Amlodipine 5 MG TAB PO SCH (07:53)
[2019-02-26] MEDS: Aspirin 81 mg Enteric Coated Tablet PO SCH (07:53)
[2019-02-26] MEDS: Enoxaparin Sodium 40 MG/0.4 ML SYRINGE SC SCH (07:54)
[2019-02-26] MEDS: Lisinopril 20 MG TAB PO SCH (07:54)
[2019-02-26] MEDS: cloNIDine 0.1 MG TAB PO SCH ×2 (07:54→20:18)
[2019-02-26] MEDS: Acetaminophen 325 MG TAB PO PRN ×3 (07:56→20:18)
[2019-02-26] MEDS ORDERED: Metoprolol Tartrate 25 MG TAB PO SCH (09:00)
[2019-02-26] MEDS ORDERED: Ketorolac Tromethamine 30 MG/ML VIAL IVP SCH (09:45)
[2019-02-26] MEDS: cloNIDine 0.1 MG TAB PO PRN (12:14)
[2019-02-26] MEDS: Cyclobenzaprine 10 MG TAB PO SCH ×2 (15:42→20:18)
[2019-02-27 08:35] VITALS: TEMP 98.5
[2019-02-27] MEDS: cloNIDine 0.1 MG TAB PO SCH (09:05)
[2019-02-27] MEDS: Amlodipine 5 MG TAB PO SCH (09:06)
[2019-02-27] MEDS: Cyclobenzaprine 10 MG TAB PO SCH (09:06)
[2019-02-27] MEDS: Lisinopril 20 MG TAB PO SCH (09:06)
[2019-02-27] MEDS: Enoxaparin Sodium 40 MG/0.4 ML SYRINGE SC SCH (09:06)
[2019-02-27] MEDS: Acetaminophen 325 MG TAB PO PRN (09:06)
[2019-02-27] MEDS: Aspirin 81 mg Enteric Coated Tablet PO SCH (09:06)
[2019-02-27 09:58] VITALS: BP 135/83
--- NOTE | 2019-02-28 04:47 | DIS ---
DATE OF ADMISSION: 02/25/2019 DATE OF DISCHARGE: 02/27/2019 DISCHARGE DIAGNOSES: 1. Atypical chest pain. 2. Left lower flank pain. 3. Hypertension. 4. Hyperlipidemia. HOSPITAL COURSE: The patient is a 53-year-old female, who initially presented to the hospital on 02/25 with complaints of lower back pain and chest pain. The patient was also found to have significant elevated blood pressures since she had not taken her blood pressure medications. She ran out of it. The patient did have a lumbar spine x-ray and a CT dissection lumbar spine showed mild degenerative changes in the lumbar spine without any acute osseous abnormalities. She also had a CT dissection, which did not indicate any abnormalities. No pulmonary emboli and no dissection was noted. She did have fatty liver and this was discussed with the patient. The patient was given some anti-inflammatory and also muscle relaxant. Her pain improved. She did undergo an echocardiogram, which indicated an EF of 50% to 55%, and mild mitral and tricuspid regurgitation indicating diastolic dysfunction. The patient will be discharged home. She is to follow up with her primary and have advised her to continue taking her blood pressure medications. I have made some adjustments to her blood pressure medications. MEDICATIONS: She is going to be on, 1. Norvasc 10 mg daily. 2. Flexeril 10 mg t.i.d. 3. Ibuprofen 600 mg b.i.d. for 5 days. 4. Lisinopril 40 mg daily. 5. Clonidine 0.1 b.i.d. 6. Aspirin 81 mg daily. 7. Some of her medications were titrated up from her previous doses. PHYSICAL EXAMINATION: VITAL SIGNS: Temperature 98.8, pulse 73, blood pressure 135/83. GENERAL: She is awake, alert, and oriented x3. Does not appear in distress. CV: S1, S2 present. No murmurs, rubs, or gallops. ABDOMEN: Soft and nontender. Bowel sounds are present x2. Job ID: [id number]
--- NOTE | 2019-03-01 13:35 | EKG ---
Test Reason : Blood Pressure : / mmHG Vent. Rate : 093 BPM Atrial Rate : 093 BPM P-R Int : 180 ms QRS Dur : 098 ms QT Int : 394 ms P-R-T Axes : 043 -09 007 degrees QTc Int : 489 ms Normal sinus rhythm Moderate voltage criteria for LVH, may be normal variant Prolonged QT Abnormal ECG No change from 09/2018 Confirmed by ROSALINDA PIERSON ([id number]), editorial specialist YARELY ROB ([id number]) on 03/01/2019 1:35:31 PM Referred By: KENNA Confirmed By:ROSALINDA PIERSON
== END 2019-02-27 10:11 | disposition home or self-care (01) ==
LOC: ERS 16:15 → 2SW 20:37
PROVIDERS: ADMIT Hospitalist; ATTEND Hospitalist
DX: R07.89 Other chest pain (principal); M54.5 Low back pain; I16.1 Hypertensive emergency; I11.0 Hypertensive heart disease with heart failure; I50.30 Unspecified diastolic (congestive) heart failure; N39.0 Urinary tract infection, site not specified; K21.9 Gastro-esophageal reflux disease without esophagitis; E78.5 Hyperlipidemia, unspecified; Z79.82 Long term (current) use of aspirin; Z79.899 Other long term (current) drug therapy
CPT/HCPCS: 36415; 71045; 71275; 72100; 72191; 74175; 80048; 80053; 81003; 81015; 82553; 83690; 84484; 85025; 93005; 93306; 96361; 96372; 96374; 96375; G0378; J0360; J1650; J1885

== ENCOUNTER 2019-11-11 20:55 | Observation (INO) | payer SELFPAY ==
[2019-11-11 22:49] VITALS: BMI 29.0
[2019-11-11] MEDS ORDERED: Acetaminophen 325 MG TAB PO PRN (23:23)
[2019-11-11] MEDS ORDERED: Promethazine HCl 12.5 MG in Sodium Chloride 0.9% 50 ML IVPB PRN (23:24)
[2019-11-11] MEDS ORDERED: Morphine 2 MG/ML SYRINGE SLOW IVP PRN (23:24)
[2019-11-11] MEDS ORDERED: cloNIDine 0.1 MG TAB PO PRN (23:24)
[2019-11-11] MEDS ORDERED: Ondansetron PF 4 MG/2 ML Vial IVP PRN (23:24)
[2019-11-11] MEDS ORDERED: Guaifenesin DM 100-10/5 ML UDCUP PO PRN (23:24)
[2019-11-11] MEDS ORDERED: Labetalol HCl 100 MG/20 ML VIAL SLOW IVP PRN (23:24)
[2019-11-11] MEDS ORDERED: hydrALAZINE 20 MG/ML VIAL SLOW IVP PRN (23:24)
[2019-11-11] MEDS ORDERED: HYDROcodone/Acetaminophen 5/325 mg Tablet PO PRN (23:24)
[2019-11-11] MEDS ORDERED: Dextrose 50% Abboject 50 ML SYRINGE SLOW IVP PRN (23:26)
[2019-11-11] MEDS ORDERED: Dextrose 5% in Water 1,000 ML IV PRN (23:26)
[2019-11-11] MEDS ORDERED: Cyclobenzaprine 10 MG TAB PO PRN (23:27)
--- NOTE | 2019-11-11 23:29 | PDOC.HHP ---
Hospitalist HPI - History of Present Illness Diabetes, weakness, nausea, vomiting History of Present Illness: Patient is a 54 year old female with PMH HTN who presents as direct admit from [facility] for nausea, vomiting, diarrhea and progressive weakness for 3 days, she denies sick contacts or eating undercooked or questionable food, no fevers chills or abdominal pain. During iniital eval at [facility] ER, blood sugar was found to be 1131, patient has no known history of DM so is new diagnosis. she recieved 10u SQ regular insulin and also 10u IV regular insulin, blood sugar in 400s on arrival here and patinet feeling better and requests to eat something. labs otherwise significant for Na 149, Cr 1.77 Hospitalist ROS - Review of Systems Constitutional: reports: weakness, malaise. denies: fever, chills, sweats, other Eyes: denies: pain, vision change, conjunctivae inflammation, eyelid inflammation, redness, other ENT: denies: ear pain, ear discharge, nose pain, nose discharge, nose congestion , mouth pain, mouth swelling, throat pain, throat swelling, other Respiratory: denies: cough, dry, shortness of breath, hemoptysis, SOB with excertion, pleuritic pain, sputum, wheezing, other Cardiovascular: denies: chest pain, palpitations, orthopnea, paroxysmal noc. dyspnea, edema, light headedness, other Gastrointestinal: reports: nausea, vomiting, diarrhea. denies: abdominal pain, constipation, melena, hematochezia, other Genitourinary: denies: dysuria, frequency, incontinence, hematuria, retention, other Musculoskeletal: denies: neck pain, shoulder pain, arm pain, back pain, hand pain, leg pain, foot pain, other Skin: denies: rash, lesions, robert, bruising, other Neurological: denies: weakness, numbness, incoordination, change in speech, confusion, seizures, other All other systems reviewed; all pertinent +/- noted in HPI/Subj Hospitalist History - Past Medical History Other Medical History: HTN - Past Surgical History Other Surgical History: C section x 2 cholecystectomy - Family History Family History: reports: no pertinent history. denies: diabetes mellitus - Social History Smoking Status: Never smoker Alcohol: reports: None Drugs: reports: none - Exam General Appearance: NAD, awake alert Eye: PERRL, anicteric sclera ENT: normocephalic atraumatic, no oropharyngeal lesions, moist mucosa Neck: supple, symmetric, no JVD, no thyromegaly, no lymphadenopathy, no carotid bruit Heart: RRR, no murmur, no gallops, no rubs, normal peripheral pulses Respiratory: CTAB, no wheezes, no rales, no ronchi, normal chest expansion, no tachypnea, normal percussion Gastrointestinal: soft, non-tender, non-distended, normal bowel sounds, no palpable masses, no hepatomegaly, no splenomegaly, no bruit Extremities: no cyanosis, no clubbing, no edema Skin: normal turgor, no lesions, no rashes Neurological: cranial nerve grossly intact, normal sensation to touch, no weakness, no focal deficits, no new deficit Musculoskeletal: normal tone, normal strength, no muscle wasting Psychiatric: normal affect, normal behavior, A&O x 3 Hospitalist Results - Labs Result Diagrams: 11/11/19 23:38 11/11/19 23:38 Hospitalist H&P A/P - Plan Plan: 54 year old female with PMH HTN admitted for: # new diagnosis of T2DM w/ [facility], A1C 9.9 - admit to floor - IVF - start sliding scale - DM dietary education before d/c # nausea, vomiting, diarrhea - may be viral gastroenteritis which could have been cause of extreme hyperglycemia as well # hyponatremia # RIO - likely due to dehydration due to elevated sugar, IVF and treat DM and trend BMP # HTN - continue home meds, PRNs in chart
[2019-11-11] MEDS: Sodium Chloride 0.9% 1,000 ML IV SCH (23:45)
[2019-11-11] MEDS ORDERED: Insulin Regular 300 UNITS/3 ML VIAL SC SCH (23:45)
[2019-11-11 23:51] LABS: #Basophils 0.1 thou/uL (0.0-0.2); #Monocytes 0.6 thou/uL (0.11-0.59); #Neutrophils 7.5 thou/uL (1.40-6.50); %Basophils 0.5 % (0.0-1.0); %Eosinophils 0.1 % (0.0-10.0); %Lymphocytes 19.4 % (21.0-51.0); %Monocytes 5.8 % (0.0-10.0); %Neutrophils 74.2 % (42.0-75.0); Hemoglobin 14.1 g/dL (12.0-16.0); Mean Corpuscular HGB CONC 33.8 g/dL (32.0-36.0); Mean Corpuscular Hemoglobin 29.6 pg (27.0-31.0); Mean Corpuscular Volume 87.6 fL (78.0-98.0); Platelet Count 276 thou/uL (130-400); RBC Distribution Width 11.9 % (11.5-14.5); Red Blood Cell (RBC) Count 4.75 mill/uL (4.20-5.40); White Blood Cell (WBC) Count 10.1 thou/uL (4.8-10.8)
[2019-11-12 00:06] LABS: Hemoglobin A1c 9.9 % (4.0-6.0)
[2019-11-12 00:11] LABS: ALT (SGPT) 26 U/L (8-55); AST (SGOT) 20 U/L (5-34); Albumin 4.7 g/dL (3.5-5.0); Alkaline Phosphatase 88 U/L (40-110); Anion Gap 18 mmol/L (10-20); BUN (Urea Nitrogen) 32 mg/dL (9.8-20.1); Bilirubin, Total 0.4 mg/dL (0.2-1.2); Calc. Creatinine Clearance 42 mL/min (70-130); Carbon Dioxide 23 mmol/L (22-29); Chloride 112 mmol/L (98-107); Estimated GFR-MDRD 36; Globulin 3.9 g/dL (2.4-3.5); Glucose 477 mg/dL (70-105); Magnesium 2.8 mg/dL (1.6-2.6); Phosphorus 4.5 mg/dL (2.3-4.7); Potassium 3.8 mmol/L (3.5-5.1); Protein, Total 8.6 g/dL (6.0-8.3); Sodium 149 mmol/L (136-145)
[2019-11-12] MEDS: HumaLOG 300 UNITS/3 ML VIAL SC PRN ×3 (05:39→17:04)
[2019-11-12 07:37] LABS: Bilirubin Negative (Negative); Blood, Urine 1+ (Negative); Clarity Clear (Clear); Glucose, Urine (Dipstick) Greater than 1000 mg/dL (Negative); Leukocyte 250 Leu/uL (Negative); Nitrite 2+ (Negative); Protein, Urine (Dipstick) 20 mg/dL (Neg-Trace); Urobilinogen Normal mg/dL (Less than 2)
[2019-11-12 07:52] LABS: Bacteria/HPF 3+ HPF (None Seen); RBC/HPF 0-3 HPF (0-3)
[2019-11-12] MEDS: cloNIDine 0.1 MG TAB PO SCH ×2 (08:25→20:49)
[2019-11-12] MEDS: Amlodipine 10 MG TAB PO SCH (08:25)
[2019-11-12] MEDS: Lisinopril 20 MG TAB PO SCH (08:25)
[2019-11-12] MEDS: Aspirin 81 mg Enteric Coated Tablet PO SCH (08:25)
[2019-11-12] MEDS: Enoxaparin Sodium 40 MG/0.4 ML SYRINGE SC SCH (08:26)
[2019-11-12] MEDS: Sodium Chloride 0.9% 1,000 ML IV SCH ×2 (08:26→20:49)
[2019-11-12] MEDS: Polyethylene Glycol 3350 17 GM Packet PO SCH (08:26)
[2019-11-12] MEDS ORDERED: Famotidine 20 MG TAB PO SCH (09:00)
[2019-11-12] MEDS: NPH, Human Insulin Isophane 300 UNIT/3 ML VIAL SC SCH ×2 (09:29→20:51)
--- NOTE | 2019-11-12 11:34 | PDOC.HOSPP ---
- Subjective Encounter Date: 11/12/19 Encounter Time: 09:30 Subjective: Patient seen and examined. No new complaints. No overnight events - Objective Vital Signs & Weight: Vital Signs (12 hours) Temp Pulse Resp BP BP Pulse Ox 11/12/19 09:30 93 167/108 H 11/12/19 08:25 93 173/116 H 11/12/19 07:50 98.0 F 93 16 96 11/12/19 04:10 97.6 F 84 18 163/106 H 94 L Weight Weight 163 lb 12.8 oz I&O: 11/11/19 11/12/19 11/13/19 06:59 06:59 06:59 Intake Total 2 1490 Balance 2 1490 Result Diagrams: 11/11/19 23:38 11/11/19 23:38 Additional Labs: Accuchecks 11/12/19 11/11/19 05:27 22:39 POC Glucose 485 H 431 H Hospitalist ROS - Review of Systems Eyes: denies: pain, vision change, conjunctivae inflammation, eyelid inflammation, redness, other ENT: denies: ear pain, ear discharge, nose pain, nose discharge, nose congestion , mouth pain, mouth swelling, throat pain, throat swelling, other Respiratory: denies: cough, dry, shortness of breath, hemoptysis, SOB with excertion, pleuritic pain, sputum, wheezing, other Cardiovascular: denies: chest pain, palpitations, orthopnea, paroxysmal noc. dyspnea, edema, light headedness, other Gastrointestinal: denies: nausea, vomiting, abdominal pain, diarrhea, constipation, melena, hematochezia, other Genitourinary: denies: dysuria, frequency, incontinence, hematuria, retention, other Musculoskeletal: denies: neck pain, shoulder pain, arm pain, back pain, hand pain, leg pain, foot pain, other - Medication Medications: Active Medications Generic Name Dose Route Start Last Admin Trade Name Freq PRN Reason Stop Dose Admin Amlodipine Besylate 10 mg 11/12/19 09:00 11/12/19 08:25 Norvasc PO 10 mg DAILY REAL Administration Aspirin 81 mg 11/12/19 09:00 11/12/19 08:25 Ecotrin PO 81 mg DAILY REAL Administration Clonidine 0.1 mg 11/12/19 09:00 11/12/19 08:25 Catapres PO 0.1 mg BID REAL Administration Enoxaparin Sodium 40 mg 11/12/19 09:00 11/12/19 08:26 Lovenox SC 40 mg 0900 REAL Administration Hydralazine HCl 10 mg 11/11/19 23:24 11/12/19 09:30 Apresoline SLOW IVP 10 mg Q6H PRN Administration SBP GREATER THAN 160 Sodium Chloride 1,000 mls @ 100 mls/hr 11/11/19 23:30 11/12/19 08:26 Normal Saline 0.9% IV 1,000 mls .Q10H REAL Administration Insulin Human Lispro 0 units 11/11/19 23:26 11/12/19 05:39 Humalog SC 11 unit .MILD SLIDING SCALE PRN Administration Mild Correctional Scale Insulin Human NPH 15 unit 11/12/19 09:00 11/12/19 09:29 Humulin N SC 15 unit BID REAL Administration Lisinopril 40 mg 11/12/19 09:00 11/12/19 08:25 Zestril PO 40 mg DAILY REAL Administration Ondansetron HCl 4 mg 11/11/19 23:24 11/12/19 05:12 Zofran IVP 4 mg Q6H PRN Administration Nausea/Vomiting use 1st Polyethylene Glycol 17 gm 11/12/19 09:00 11/12/19 08:26 Miralax PO 17 gm DAILY REAL Administration - Exam General Appearance: NAD, awake alert Eye: PERRL, anicteric sclera ENT: normocephalic atraumatic, no oropharyngeal lesions Neck: supple, symmetric, no JVD, no thyromegaly Heart: RRR, no murmur, no gallops, no rubs Respiratory: CTAB, no wheezes, no rales, no ronchi Gastrointestinal: soft, non-tender, non-distended, normal bowel sounds Extremities: no cyanosis, no clubbing, no edema Skin: normal turgor, no lesions Neurological: no focal deficits Musculoskeletal: normal tone, normal strength Psychiatric: normal affect, normal behavior Hosp A/P (1) RIO (acute kidney injury) Code(s): N17.9 - ACUTE KIDNEY FAILURE, UNSPECIFIED Status: Acute (2) New onset type 2 diabetes mellitus Code(s): E11.9 - TYPE 2 DIABETES MELLITUS WITHOUT COMPLICATIONS Status: Acute (3) Essential hypertension Code(s): I10 - ESSENTIAL (PRIMARY) HYPERTENSION Status: Chronic - Plan old records reviewed/req consult dietitian continue IVF start insulin NPH 15 unit sc bid diabetes education, teach insulin technique medication reviewed symptomatic treatment repeat labs tomorrow control BP expecting discharge tomorrow, pending improvement in her blood sugar
[2019-11-12] MEDS: Insulin Regular 300 UNITS/3 ML VIAL SC SCH (20:51)
[2019-11-13] MEDS: HumaLOG 300 UNITS/3 ML VIAL SC PRN ×4 (00:37→11:13)
[2019-11-13] MEDS: Sodium Chloride 0.9% 1,000 ML IV SCH (05:19)
[2019-11-13 06:28] LABS: #Basophils 0.1 thou/uL (0.0-0.2); #Lymphocytes 2.7 thou/uL (1.20-3.40); #Monocytes 0.4 thou/uL (0.11-0.59); #Neutrophils 3.8 thou/uL (1.40-6.50); %Basophils 1.1 % (0.0-1.0); %Eosinophils 0.5 % (0.0-10.0); %Lymphocytes 38.6 % (21.0-51.0); %Monocytes 5.8 % (0.0-10.0); Hemoglobin 12.9 g/dL (12.0-16.0); Mean Corpuscular HGB CONC 34.3 g/dL (32.0-36.0); Mean Corpuscular Hemoglobin 29.9 pg (27.0-31.0); Mean Corpuscular Volume 87.1 fL (78.0-98.0); Mean Platelet Volume 8.8 fL (7.4-10.4); Platelet Count 200 thou/uL (130-400); RBC Distribution Width 11.5 % (11.5-14.5); Red Blood Cell (RBC) Count 4.31 mill/uL (4.20-5.40)
[2019-11-13 06:48] LABS: Anion Gap 14 mmol/L (10-20); BUN (Urea Nitrogen) 21 mg/dL (9.8-20.1); Calc. Creatinine Clearance 61 mL/min (70-130); Calcium 9.2 mg/dL (7.8-10.44); Carbon Dioxide 20 mmol/L (22-29); Cardiac Risk 6.1 (Less than 4.5); Chloride 109 mmol/L (98-107); Cholesterol 190 mg/dl (< 200 Desired); Estimated GFR-MDRD 56; Glucose 303 mg/dL (70-105); HDL Cholesterol 31 mg/dL (>60 Neg Risk); Potassium 3.8 mmol/L (3.5-5.1); Sodium 139 mmol/L (136-145); Triglycerides 507 mg/dL (Less than 150)
[2019-11-13] MEDS: Aspirin 81 mg Enteric Coated Tablet PO SCH (08:17)
[2019-11-13] MEDS: cloNIDine 0.1 MG TAB PO SCH (08:17)
[2019-11-13] MEDS: Amlodipine 10 MG TAB PO SCH (08:18)
[2019-11-13] MEDS: Lisinopril 20 MG TAB PO SCH (08:18)
[2019-11-13] MEDS: Enoxaparin Sodium 40 MG/0.4 ML SYRINGE SC SCH (08:19)
[2019-11-13] MEDS: Polyethylene Glycol 3350 17 GM Packet PO SCH (08:20)
[2019-11-13] MEDS: Insulin Regular 300 UNITS/3 ML VIAL SC SCH ×2 (08:22→11:11)
[2019-11-13] MEDS: NPH, Human Insulin Isophane 300 UNIT/3 ML VIAL SC SCH (08:23)
[2019-11-13] MEDS ORDERED: Famotidine 20 MG TAB PO SCH (09:00)
--- NOTE | 2019-11-13 10:46 | DIS ---
DATE OF ADMISSION: 11/11/2019 DATE OF DISCHARGE: 11/13/2019 PRIMARY CARE PHYSICIAN: Negro Carrasco. DISCHARGE DISPOSITION: Home. PRIMARY DISCHARGE DIAGNOSES: 1. New onset diabetes type 2, insulin requiring. 2. Mild acute kidney injury, improved. SECONDARY DISCHARGE DIAGNOSIS: Hypertension. PRIMARY PROCEDURE/OPERATION: None. RADIOLOGICAL INVESTIGATION: None. SIGNIFICANT LABORATORY DATA: WBC 7.0, hemoglobin 12.9, and platelets 200. Sodium 139, potassium 3.8, BUN 21, creatinine 1.21, calcium 9.2. LDL test not performed. Triglyceride 507. TSH 2.42. Urinalysis consistent with glucosuria. Serum ketones, beta-hydroxybutyrate 0.49. DISCHARGE MEDICATIONS: 1. Lipitor 40 mg p.o. at bedtime. 2. Amlodipine 10 mg p.o. daily. 3. Clonidine 0.1 mg p.o. b.i.d. 4. Aspirin 81 mg p.o. daily. 5. 70/30 insulin 20 units subcu b.i.d. and regular insulin 10 units subcu before meals and at bedtime as per sliding scale. 6. Lisinopril 40 mg p.o. daily. CONTRAINDICATION: None. CODE STATUS: Full code. INPATIENT TOBACCO SPRAYER: None. ALLERGIES: NO KNOWN DRUG ALLERGIES. DISCHARGE PLAN: Post hospital, the patient is instructed to make appointment with primary care physician within 1 week. The patient is also instructed to keep a record of blood sugar and follow up with primary care physician for further adjustment of insulin therapy. HOSPITAL COURSE: A 54-year-old female with above-mentioned medical problem, who was admitted by Dr. Isidro Anderson, please see his H and P for further details. This admission, the patient was found with new onset diabetes with blood sugar very very high. The patient was having osmotic diuresis and that was causing her mild acute kidney injury. The patient was not having DKA this admission. The patient was admitted to the medical floor and she was hydrated with IV fluid and she was treated with insulin. We started insulin 70/30 as well as regular insulin as per sliding scale. We have consulted dietitian and necessary diabetes education given. We have educated about diabetes and how to control diabetes as well as diet. The patient also learned how to take insulin. The patient has a high cholesterol and that is why we started Lipitor therapy on discharge. All new medication prescription given. The patient is seen and examined at bedside today. Plan of care discussed with the patient and family member. PHYSICAL EXAMINATION: VITAL SIGNS: Currently, temperature 98.2, pulse 90, respiratory rate 16, saturation 98% on room air, and blood pressure 139/88. Weight 163 pounds. GENERAL: The patient is currently alert, awake, in no acute distress. HEENT: Head, normocephalic and atraumatic. NECK: Supple. No JVD. No meningeal signs of irritation. LUNGS: Clear to auscultation without any rhonchi or rales. CARDIAC: S1 and S2, regular. No murmur. No gallop. No rub. ABDOMEN: Soft, bowel sounds present, nontender, nondistended. No organomegaly. No mass. EXTREMITIES: No edema. Good distal pulsation. NEUROLOGIC: Nonfocal examination. Overall, the patient is medically stable for discharge. Job ID: [id number]
[2019-11-13 10:48] VITALS: BP 148/100; TEMP 98.1
== END 2019-11-13 11:35 | disposition home or self-care (01) ==
LOC: INTOOBSV 22:26 → T4-B 22:26
PROVIDERS: ADMIT Internal Medicine; ATTEND Internal Medicine
DX: E11.65 Type 2 diabetes mellitus with hyperglycemia (principal); E11.00 Type 2 diabetes mellitus with hyperosmolarity without nonketotic hyperglycemic-hyperosmolar coma (NKHHC); N17.9 Acute kidney failure, unspecified; I10 Essential (primary) hypertension; R11.2 Nausea with vomiting, unspecified; R19.7 Diarrhea, unspecified; E87.1 Hypo-osmolality and hyponatremia; Z79.899 Other long term (current) drug therapy
CPT/HCPCS: 36415; 36416; 80048; 80053; 80061; 81001; 82010; 83036; 83735; 83930; 83935; 84100; 84443; 85025; 96372; 96374; 96375; G0378; G0379; J0360; J1650; J1815; J2405

== ENCOUNTER 2020-08-12 11:16 | Observation (INO) | payer OTHER, SELFPAY ==
[2020-08-12] MEDS ORDERED: Ketorolac Tromethamine 30 MG/ML VIAL ONE (11:51)
[2020-08-12 12:06] LABS: #Basophils 0.1 thou/uL (0.0-0.2); #Eosinphils 0.1 thou/uL (0.0-0.7); #Lymphocytes 2.6 thou/uL (1.20-3.40); #Monocytes 0.4 thou/uL (0.11-0.59); #Neutrophils 2.2 thou/uL (1.40-6.50); %Basophils 1.1 % (0.0-1.0); %Lymphocytes 47.8 % (21.0-51.0); %Neutrophils 41.1 % (42.0-75.0); Hemoglobin 12.5 g/dL (12.0-16.0); Mean Corpuscular HGB CONC 33.7 g/dL (32.0-36.0); Mean Corpuscular Hemoglobin 28.9 pg (27.0-31.0); Mean Corpuscular Volume 85.9 fL (78.0-98.0); Mean Platelet Volume 7.3 fL (7.4-10.4); Platelet Count 238 thou/uL (130-400); Red Blood Cell (RBC) Count 4.33 mill/uL (4.20-5.40); White Blood Cell (WBC) Count 5.4 thou/uL (4.8-10.8)
[2020-08-12 12:25] LABS: ALT (SGPT) 29 U/L (8-55); AST (SGOT) 28 U/L (5-34); Albumin 4.4 g/dL (3.5-5.0); Alkaline Phosphatase 71 U/L (40-110); Anion Gap 12 mmol/L (10-20); BUN (Urea Nitrogen) 21 mg/dL (9.8-20.1); Bilirubin, Total 0.3 mg/dL (0.2-1.2); Calc. Creatinine Clearance 0 mL/min (70-130); Calcium 9.1 mg/dL (7.8-10.44); Carbon Dioxide 24 mmol/L (22-29); Chloride 106 mmol/L (98-107); Globulin 3.1 g/dL (2.4-3.5); Glucose 83 mg/dL (70-105); Lipase 25 U/L (8-78); Protein, Total 7.5 g/dL (6.0-8.3); Sodium 138 mmol/L (136-145)
[2020-08-12 12:46] LABS: CKMB 5.2 ng/mL (0-6.6)
[2020-08-12] MEDS ORDERED: Nitroglycerin 0.4 MG TAB (25 Tab Bottle) SL PRN (13:01)
[2020-08-12] MEDS ORDERED: Dextrose 50% Abboject 50 ML SYRINGE SLOW IVP PRN (13:02)
[2020-08-12] MEDS ORDERED: Dextrose 5% in Water 1,000 ML IV PRN (13:02)
[2020-08-12] MEDS ORDERED: Insulin Regular 300 UNITS/3 ML VIAL SC PRN ×2 (13:02)
[2020-08-12] MEDS ORDERED: Ondansetron ODT 4 MG TAB PO PRN (13:03)
[2020-08-12] MEDS ORDERED: Calcium Carbonate 500 MG ChewTAB PO PRN (13:03)
[2020-08-12] MEDS ORDERED: Ondansetron PF 4 MG/2 ML Vial IVP PRN (13:03)
[2020-08-12] MEDS ORDERED: cloNIDine 0.1 MG TAB PO PRN (13:15)
[2020-08-12] MEDS ORDERED: Nitroglycerin 2% Ointment 1 INCH/1 GM Packet ONE (15:15)
[2020-08-12] MEDS: Nitroglycerin 2% Ointment 1 INCH/1 GM Packet TOP SCH ×2 (15:20→21:38)
[2020-08-12] MEDS: Acetaminophen 325 MG TAB PO PRN (18:25)
[2020-08-12 18:35] VITALS: BMI 31.6
[2020-08-12 18:37] LABS: CKMB 4.5 ng/mL (0-6.6)
[2020-08-12] MEDS ORDERED: Atorvastatin Calcium 20 MG TAB PO SCH (21:00)
[2020-08-12] MEDS: cloNIDine 0.1 MG TAB PO SCH (21:39)
[2020-08-12] MEDS: Famotidine 20 MG TAB PO SCH (21:39)
[2020-08-12 22:27] LABS: SARS-CoV-2 PCR by NAA Not Detected (NotDetected)
[2020-08-12] MEDS ORDERED: Morphine 2 MG/ML VIAL SLOW IVP SCH (23:59)
[2020-08-13] MEDS: Famotidine 20 MG TAB PO SCH (07:57)
[2020-08-13] MEDS ORDERED: Aspirin 81 mg Enteric Coated Tablet PO SCH (09:00)
[2020-08-13] MEDS ORDERED: Lisinopril 20 MG TAB PO SCH (09:00)
[2020-08-13] MEDS ORDERED: Amlodipine 10 MG TAB PO SCH (09:00)
[2020-08-13] MEDS ORDERED: Aspirin 325 mg Enteric Coated Tablet PO SCH (09:00)
[2020-08-13] MEDS ORDERED: ADENOSINE 60 MG/20 ML VIAL ONE (11:37)
[2020-08-13] MEDS: cloNIDine 0.1 MG TAB PO SCH (13:26)
[2020-08-13 13:29] VITALS: BP 160/97
[2020-08-13] MEDS: Acetaminophen 325 MG TAB PO PRN (13:32)
[2020-08-13 15:50] VITALS: TEMP 98.3
== END 2020-08-13 14:41 | disposition home or self-care (01) ==
LOC: ERS 11:16 → ERHOLD 13:01 → 2SW 17:22
PROVIDERS: ADMIT Internal Medicine; ATTEND Internal Medicine
DX: R07.89 Other chest pain (principal); I13.0 Hypertensive heart and chronic kidney disease with heart failure and stage 1 through stage 4 chronic kidney disease, or unspecified chronic kidney disease; E11.22 Type 2 diabetes mellitus with diabetic chronic kidney disease; N18.2 Chronic kidney disease, stage 2 (mild); I50.32 Chronic diastolic (congestive) heart failure; E78.5 Hyperlipidemia, unspecified; K21.9 Gastro-esophageal reflux disease without esophagitis; Z79.4 Long term (current) use of insulin; Z79.82 Long term (current) use of aspirin; Z79.899 Other long term (current) drug therapy; Z87.891 Personal history of nicotine dependence; Z20.822 Contact with and (suspected) exposure to COVID-19
CPT/HCPCS: 36415; 36416; 71045; 78452; 80053; 82553; 83690; 84484; 85025; 85379; 87635; 93005; 93017; 94760; 96374; 96375; A9500; G0378; J0153; J1885; J2270; U0003; U0005

== ENCOUNTER 2020-08-31 08:22 | Outpatient (CLI) | payer BC | END 2020-08-31 08:23 | disposition home or self-care (01) | LOC: BICRAD 08:22 | PROVIDERS: ATTEND Specialist | DX: M48.02 Spinal stenosis, cervical region (principal) | CPT/HCPCS: 72040 ==

== ENCOUNTER 2020-10-06 07:23 | Outpatient (CLI) | payer BC | END 2020-10-06 07:24 | disposition home or self-care (01) | LOC: BICMRI 07:23 | PROVIDERS: ATTEND Specialist | DX: M48.02 Spinal stenosis, cervical region (principal); M47.812 Spondylosis without myelopathy or radiculopathy, cervical region | CPT/HCPCS: 72141 ==

== ENCOUNTER 2021-04-06 07:46 | Outpatient (CLI) | payer BC | END 2021-04-06 07:47 | disposition home or self-care (01) | LOC: BICMAMMO 07:46 | PROVIDERS: ATTEND Nurse Practitioner Family | DX: Z12.31 Encounter for screening mammogram for malignant neoplasm of breast (principal); Z91.89 Other specified personal risk factors, not elsewhere classified | CPT/HCPCS: 77063; 77067 ==

== ENCOUNTER 2022-09-12 13:31 | Emergency (ER) | payer BC ==
[2022-09-12 16:29] LABS: SARS-CoV-2 NAA Rapid Test Not Detected (NotDetected)
[2022-09-12] MEDS ORDERED: Acetaminophen 325 MG TAB ONE (18:22)
[2022-09-12] MEDS ORDERED: Ketorolac Tromethamine 30 MG/ML VIAL ONE (18:22)
== END 2022-09-12 19:36 | disposition home or self-care (01) ==
LOC: ERS 13:31
DX: B34.9 Viral infection, unspecified (principal); R51.9 Headache, unspecified; I10 Essential (primary) hypertension; E11.9 Type 2 diabetes mellitus without complications; K21.9 Gastro-esophageal reflux disease without esophagitis; Z20.822 Contact with and (suspected) exposure to COVID-19
CPT/HCPCS: 71045; 96372; J1885

== ENCOUNTER 2023-11-30 11:30 | Observation (INO) | payer BC, SELFPAY ==
[2023-11-30 12:09] LABS: Bacteria/HPF None Seen HPF (None Seen); Bilirubin Negative (Negative); Blood, Urine Negative (Negative); CAUTI Indications for Culture Acute Hematuria; Clarity Clear (Clear); Glucose, Urine (Dipstick) Greater than 1000 mg/dL (Negative); Ketone, Urine Negative (Negative); Leukocyte Negative Leu/uL (Negative); Nitrite Negative (Negative); Protein, Urine (Dipstick) 20 mg/dL (Neg-Trace); RBC/HPF 0-3 HPF (0-3); Specific Gravity, Urine 1.032 (1.002-1.036); Urobilinogen Normal mg/dL (Less than 2); WBC/HPF 0-3 HPF (0-3); pH, Urine 5.5 (5.0-9.0)
[2023-11-30 12:11] LABS: Urine Culture Reflex No No
[2023-11-30 12:19] LABS: #Basophils Less than 0.03 10x3/uL (0.0-0.2); %Basophils 0.4 % (0.0-1.0); %Eosinophils 1.3 % (0.0-10.0); %Lymphocytes 38.7 % (21.0-51.0); %Monocytes 6.9 % (0.0-10.0); %Neutrophils 52.5 % (42.0-75.0); Hematocrit 35.3 % (36.0-47.0); Hemoglobin 12.4 g/dL (12.0-16.0); Mean Corpuscular HGB CONC 35.1 g/dL (32.0-36.0); Mean Corpuscular Hemoglobin 28.6 pg (27.0-31.0); Mean Corpuscular Volume 81.5 fL (78.0-98.0); Mean Platelet Volume 11.2 fL (7.4-10.4); Platelet Count 176 10x3/uL (130-400); RBC Distribution Width 12.7 % (11.5-14.5); Red Blood Cell (RBC) Count 4.33 mill/uL (4.20-5.40)
[2023-11-30 12:36] LABS: ALT (SGPT) 32 U/L (8-55); AST (SGOT) 24 U/L (5-34); Albumin 4.4 g/dL (3.5-5.0); Alkaline Phosphatase 87 U/L (40-110); Anion Gap 16 mmol/L (10-20); BUN (Urea Nitrogen) 19 mg/dL (9.8-20.1); Bilirubin, Total 0.3 mg/dL (0.2-1.2); Calc. Creatinine Clearance 0 mL/min (70-130); Calcium 10.1 mg/dL (7.8-10.44); Carbon Dioxide 21 mmol/L (22-29); Chloride 101 mmol/L (98-107); Estimated GFR 41; Globulin 3.4 g/dL (2.4-3.5); Glucose 388 mg/dL (70-105); Potassium 3.9 mmol/L (3.5-5.1); Protein, Total 7.8 g/dL (6.0-8.3); Sodium 134 mmol/L (136-145)
[2023-11-30 12:41] LABS: Troponin I 0.031 ng/mL (< 0.028)
[2023-11-30] MEDS ORDERED: Aspirin Chewable 81 MG TAB ONE (14:03)
[2023-11-30] MEDS ORDERED: Nitroglycerin 2% Ointment 1 INCH/1 GM Packet ONE (14:03)
[2023-11-30] MEDS ORDERED: Calcium Carbonate 500 MG ChewTAB PO PRN (14:10)
[2023-11-30] MEDS ORDERED: Senokot S 8.6-50 MG TAB PO PRN (14:10)
[2023-11-30] MEDS ORDERED: Ondansetron PF 4 MG/2 ML Vial IVP PRN (14:10)
[2023-11-30] MEDS ORDERED: Glucagon 1 MG/ML KIT IM PRN (14:31)
[2023-11-30] MEDS ORDERED: Dextrose 50% Abboject 50 ML SYRINGE SLOW IVP PRN (14:31)
[2023-11-30] MEDS ORDERED: Dextrose 5% in Water 1,000 ML IV PRN (14:31)
[2023-11-30] MEDS ORDERED: hydrALAZINE 20 MG/ML VIAL ONE (14:50)
[2023-11-30 15:49] LABS: Troponin I 0.033 ng/mL (< 0.028)
[2023-11-30] MEDS: Amlodipine 10 MG TAB PO SCH (17:03)
[2023-11-30] MEDS: Lisinopril 10 MG TAB PO SCH (17:04)
[2023-11-30] MEDS: Insulin Glargine 30 UNITS/0.3 ML VIAL SC SCH (17:04)
[2023-11-30] MEDS: Sodium Chloride 0.9% 1,000 ML IV SCH (17:06)
[2023-11-30 18:12] LABS: Troponin I 0.035 ng/mL (< 0.028)
[2023-11-30 18:35] VITALS: BMI 30.8
[2023-11-30] MEDS: HYDROcodone/Acetaminophen 5/325 mg Tablet PO PRN (18:40)
[2023-11-30] MEDS: HumaLOG 300 UNITS/3 ML VIAL SC PRN ×2 (18:40→22:07)
[2023-11-30] MEDS: hydrALAZINE 20 MG/ML VIAL SLOW IVP PRN (18:42)
[2023-11-30] MEDS: Lisinopril 20 MG TAB PO SCH (21:43)
[2023-11-30] MEDS: Amlodipine 5 MG TAB PO SCH (21:43)
[2023-12-01 04:25] LABS: #Basophils Less than 0.03 10x3/uL (0.0-0.2); %Basophils 0.3 % (0.0-1.0); %Eosinophils 1.4 % (0.0-10.0); %Lymphocytes 31.7 % (21.0-51.0); %Monocytes 7.4 % (0.0-10.0); %Neutrophils 58.7 % (42.0-75.0); Hematocrit 32.7 % (36.0-47.0); Hemoglobin 11.1 g/dL (12.0-16.0); Mean Corpuscular HGB CONC 33.9 g/dL (32.0-36.0); Mean Corpuscular Hemoglobin 28.2 pg (27.0-31.0); Mean Corpuscular Volume 83.2 fL (78.0-98.0); Platelet Count 166 10x3/uL (130-400); RBC Distribution Width 12.9 % (11.5-14.5); Red Blood Cell (RBC) Count 3.93 mill/uL (4.20-5.40)
[2023-12-01 04:42] LABS: Hemoglobin A1c 7.8 % (4.0-6.0)
[2023-12-01 04:44] LABS: Anion Gap 13 mmol/L (10-20); BUN (Urea Nitrogen) 21 mg/dL (9.8-20.1); Calc. Creatinine Clearance 68 mL/min (70-130); Carbon Dioxide 20 mmol/L (22-29); Chloride 106 mmol/L (98-107); Estimated GFR 58; Glucose 329 mg/dL (70-105); Potassium 3.8 mmol/L (3.5-5.1); Sodium 135 mmol/L (136-145)
[2023-12-01] MEDS: Acetaminophen 325 MG TAB PO PRN (08:57)
[2023-12-01] MEDS: Enoxaparin 40 MG (0.4 mL) SYRINGE SC SCH (08:58)
[2023-12-01] MEDS: Insulin Glargine 30 UNITS/0.3 ML VIAL SC SCH (08:58)
[2023-12-01] MEDS ORDERED: Fioricet 325/50/40 mg Tablet PO PRN (09:16)
[2023-12-01] MEDS: Fioricet 325/50/40 mg Tablet PO SCH (10:00)
[2023-12-02 09:55] VITALS: BP 142/93; TEMP 98
== END 2023-12-02 11:56 | disposition home or self-care (01) ==
LOC: ERS 11:30 → 2SW 16:14
PROVIDERS: ADMIT Family Medicine; ATTEND Family Medicine
PROC: B246ZZZ Ultrasonography of Right and Left Heart (ICD-10-PCS; principal; 2023-12-01)
DX: I16.0 Hypertensive urgency (principal); I11.9 Hypertensive heart disease without heart failure; I08.1 Rheumatic disorders of both mitral and tricuspid valves; E11.65 Type 2 diabetes mellitus with hyperglycemia; R77.8 Other specified abnormalities of plasma proteins; K21.9 Gastro-esophageal reflux disease without esophagitis; Z79.4 Long term (current) use of insulin; Z79.82 Long term (current) use of aspirin; Z79.899 Other long term (current) drug therapy; Z90.710 Acquired absence of both cervix and uterus; Z90.49 Acquired absence of other specified parts of digestive tract
CPT/HCPCS: 36415; 36416; 71045; 80048; 80053; 81001; 82010; 83036; 84484; 85025; 93005; 93306; 96374; J0360; J1650; J1815; J7050

== ENCOUNTER 2023-12-07 10:29 | Emergency (ER) | payer BC, SELFPAY ==
[2023-12-07 11:26] LABS: Actual Bicarbonate (HCO3v) 20.5 mEq/L (22-28); Analyzer IN Cardio ER; Base Excess -3.1 mEq/L (-2.0 to +3.0); Calcium, Ionized (venous) 1.16 mmol/L (1.16-1.32); Chloride (VBG) 99 mmol/L (98-106); Hematocrit-VBG 38 % (36.0-47.0); Potassium (VBG) 4.29 mmol/L (3.70-5.30); Sodium 135 mmol/L (133-146); pH (venous) 7.416 (7.32-7.43)
[2023-12-07 11:45] LABS: #Basophils 0.03 10x3/uL (0.0-0.2); %Basophils 0.7 % (0.0-1.0); %Eosinophils 1.3 % (0.0-10.0); %Lymphocytes 39.6 % (21.0-51.0); %Monocytes 7.2 % (0.0-10.0); %Neutrophils 51.2 % (42.0-75.0); Hematocrit 35.7 % (36.0-47.0); Hemoglobin 11.8 g/dL (12.0-16.0); Mean Corpuscular HGB CONC 33.1 g/dL (32.0-36.0); Mean Corpuscular Hemoglobin 28.2 pg (27.0-31.0); Mean Corpuscular Volume 85.2 fL (78.0-98.0); Mean Platelet Volume 11.1 fL (7.4-10.4); Platelet Count 211 10x3/uL (130-400); RBC Distribution Width 12.6 % (11.5-14.5); Red Blood Cell (RBC) Count 4.19 mill/uL (4.20-5.40)
[2023-12-07 12:01] LABS: Phosphorus 3.6 mg/dL (2.3-4.7)
[2023-12-07 12:12] LABS: ALT (SGPT) 29 U/L (8-55); AST (SGOT) 22 U/L (5-34); Albumin 4.2 g/dL (3.5-5.0); Alkaline Phosphatase 81 U/L (40-110); Anion Gap 15 mmol/L (10-20); BUN (Urea Nitrogen) 23 mg/dL (9.8-20.1); Bilirubin, Total 0.3 mg/dL (0.2-1.2); Calc. Creatinine Clearance 0 mL/min (70-130); Calcium 9.9 mg/dL (7.8-10.44); Carbon Dioxide 18 mmol/L (22-29); Chloride 100 mmol/L (98-107); Estimated GFR 53; Globulin 3.5 g/dL (2.4-3.5); Glucose 412 mg/dL (70-105); Magnesium 1.9 mg/dL (1.6-2.6); Potassium 4.1 mmol/L (3.5-5.1); Protein, Total 7.7 g/dL (6.0-8.3); Sodium 129 mmol/L (136-145)
[2023-12-07] MEDS ORDERED: Insulin Regular, Human 100 UNIT/ML 10 ML VIAL ONE (12:14)
== END 2023-12-07 14:39 | disposition home or self-care (01) ==
LOC: ERS 10:29
DX: E11.65 Type 2 diabetes mellitus with hyperglycemia (principal); I10 Essential (primary) hypertension; Z79.899 Other long term (current) drug therapy
CPT/HCPCS: 36415; 36416; 80053; 82010; 82805; 83735; 84100; 85025; 93005; 96360; 96361; J1815

== ENCOUNTER 2024-01-28 03:18 | Inpatient (IN) | payer BC, SELFPAY ==
[2024-01-28 03:53] LABS: Bacteria/HPF None Seen HPF (None Seen); Bilirubin Negative (Negative); Blood, Urine Negative (Negative); CAUTI Indications for Culture Dysuria,urgency,freq; Clarity Clear (Clear); Glucose, Urine (Dipstick) Greater than 1000 mg/dL (Negative); Ketone, Urine 40 mg/dL (Negative); Leukocyte 75 Leu/uL (Negative); Nitrite Negative (Negative); Protein, Urine (Dipstick) Negative (Neg-Trace); RBC/HPF 0-3 HPF (0-3); Specific Gravity, Urine 1.025 (1.002-1.036); Squamous Epithelial None Seen HPF (0-3); Urobilinogen Normal mg/dL (Less than 2); WBC/HPF 0-3 HPF (0-3)
[2024-01-28 03:55] LABS: Urine Culture Reflex No No
[2024-01-28 04:28] LABS: Influenza A by NAA Not Detected (NotDetected); Influenza B by NAA Not Detected (NotDetected); SARS-CoV-2 NAA Rapid Test Not Detected (NotDetected)
[2024-01-28 04:36] LABS: #Basophils Less than 0.03 10x3/uL (0.0-0.2); %Basophils 0.4 % (0.0-1.0); %Eosinophils 0.8 % (0.0-10.0); %Lymphocytes 36.9 % (21.0-51.0); %Monocytes 7.6 % (0.0-10.0); %Neutrophils 54.1 % (42.0-75.0); Hematocrit 38.3 % (36.0-47.0); Hemoglobin 13.1 g/dL (12.0-16.0); Mean Corpuscular HGB CONC 34.2 g/dL (32.0-36.0); Mean Corpuscular Hemoglobin 27.6 pg (27.0-31.0); Mean Corpuscular Volume 80.8 fL (78.0-98.0); Mean Platelet Volume 11.5 fL (7.4-10.4); Platelet Count 208 10x3/uL (130-400); RBC Distribution Width 12.2 % (11.5-14.5); Red Blood Cell (RBC) Count 4.74 mill/uL (4.20-5.40)
[2024-01-28 04:47] LABS: Phosphorus 4.9 mg/dL (2.3-4.7)
[2024-01-28 04:56] LABS: ALT (SGPT) 20 U/L (8-55); AST (SGOT) 17 U/L (5-34); Albumin 4.9 g/dL (3.5-5.0); Alkaline Phosphatase 98 U/L (40-110); Anion Gap 24 mmol/L (10-20); BUN (Urea Nitrogen) 36 mg/dL (9.8-20.1); Bilirubin, Total 0.5 mg/dL (0.2-1.2); Calc. Creatinine Clearance 0 mL/min (70-130); Calcium 10.8 mg/dL (7.8-10.44); Carbon Dioxide 15 mmol/L (22-29); Chloride 97 mmol/L (98-107); Estimated GFR 28; Globulin 3.7 g/dL (2.4-3.5); Glucose 759 mg/dL (70-105); Magnesium 2.6 mg/dL (1.6-2.6); Potassium 4.9 mmol/L (3.5-5.1); Protein, Total 8.6 g/dL (6.0-8.3); Sodium 131 mmol/L (136-145)
[2024-01-28] MEDS ORDERED: NS 0.9% w/ 20 MEQ KCL 1,000 ML ONE (05:38)
[2024-01-28] MEDS ORDERED: Insulin Regular, Human 100 UNIT/ML 10 ML VIAL ONE (05:38)
[2024-01-28] MEDS ORDERED: INSULIN REGULAR IN 0.9 % NACL 100 ML ONE (05:39)
[2024-01-28] MEDS ORDERED: Electrolyte Replacement Protocol 1 EACH IVPB SCH (06:11)
[2024-01-28] MEDS ORDERED: Dextrose 5 %-0.45 % NaCl 1,000 ML IV PRN (06:11)
[2024-01-28] MEDS ORDERED: NS 0.9% w/ 20 MEQ KCL 1,000 ML IV PRN ×2 (06:11)
[2024-01-28] MEDS ORDERED: Sodium Chloride 0.9% 1,000 ML IV PRN ×4 (06:11)
[2024-01-28] MEDS ORDERED: Dextrose 50% Abboject 50 ML SYRINGE SLOW IVP PRN (06:11)
[2024-01-28 06:57] VITALS: BMI 27.5
[2024-01-28 07:00] LABS: Calcium, Ionized (venous) 1.31 mmol/L (1.16-1.32); Chloride (VBG) 102 mmol/L (98-106); Hematocrit-VBG 39 % (36.0-47.0); Hemoglobin (Hb) 13.2 g/dL (11.7-16.0); Potassium (VBG) 4.86 mmol/L (3.70-5.30); Sodium 138 mmol/L (133-146)
[2024-01-28 07:02] LABS: pH (venous) 7.168 (7.32-7.43)
[2024-01-28] MEDS: Pantoprazole DR 40 MG TAB PO SCH (08:09)
[2024-01-28] MEDS: Enoxaparin 40 MG (0.4 mL) SYRINGE SC SCH (08:09)
[2024-01-28] MEDS: Amlodipine 5 MG TAB PO SCH (08:09)
[2024-01-28 09:15] LABS: Anion Gap 22 mmol/L (10-20); BUN (Urea Nitrogen) 31 mg/dL (9.8-20.1); Calc. Creatinine Clearance 41 mL/min (70-130); Calcium 9.9 mg/dL (7.8-10.44); Carbon Dioxide 11 mmol/L (22-29); Chloride 109 mmol/L (98-107); Estimated GFR 36; Glucose 451 mg/dL (70-105); Potassium 4.8 mmol/L (3.5-5.1); Sodium 137 mmol/L (136-145)
[2024-01-28 11:36] LABS: A1c 768.819 g/dL; Hb (HGBA1c) 5618.7654 umol/L
[2024-01-28 12:01] LABS: Hemoglobin A1c Greater than 14.0 % (4.0-6.0)
[2024-01-28 13:22] LABS: Anion Gap 17 mmol/L (10-20); BUN (Urea Nitrogen) 23 mg/dL (9.8-20.1); Calc. Creatinine Clearance 57 mL/min (70-130); Calcium 9.3 mg/dL (7.8-10.44); Carbon Dioxide 13 mmol/L (22-29); Chloride 112 mmol/L (98-107); Estimated GFR 53; Glucose 265 mg/dL (70-105); Potassium 4.5 mmol/L (3.5-5.1); Sodium 137 mmol/L (136-145)
[2024-01-28 20:10] LABS: Anion Gap 13 mmol/L (10-20); BUN (Urea Nitrogen) 17 mg/dL (9.8-20.1); Calc. Creatinine Clearance 65 mL/min (70-130); Calcium 9.4 mg/dL (7.8-10.44); Carbon Dioxide 16 mmol/L (22-29); Chloride 110 mmol/L (98-107); Estimated GFR 62; Glucose 220 mg/dL (70-105); Potassium 4.2 mmol/L (3.5-5.1); Sodium 135 mmol/L (136-145)
[2024-01-28] MEDS: Acetaminophen 325 MG TAB PO PRN (20:18)
[2024-01-28] MEDS: INSULIN REGULAR IN 0.9 % NACL 100 ML IVPB SCH (21:19)
[2024-01-28] MEDS: D5 1/2 NS w/20 mEq KCL 1,000 ML IV PRN (21:20)
[2024-01-29 00:42] LABS: Anion Gap 12 mmol/L (10-20); BUN (Urea Nitrogen) 13 mg/dL (9.8-20.1); Calc. Creatinine Clearance 77 mL/min (70-130); Calcium 8.7 mg/dL (7.8-10.44); Carbon Dioxide 17 mmol/L (22-29); Chloride 111 mmol/L (98-107); Estimated GFR 76; Glucose 209 mg/dL (70-105); Potassium 3.6 mmol/L (3.5-5.1); Sodium 136 mmol/L (136-145)
[2024-01-29 10:28] LABS: #Basophils Less than 0.03 10x3/uL (0.0-0.2); %Basophils 0.4 % (0.0-1.0); %Eosinophils 1.3 % (0.0-10.0); %Lymphocytes 53.8 % (21.0-51.0); %Monocytes 7.1 % (0.0-10.0); %Neutrophils 37.2 % (42.0-75.0); Hematocrit 39.6 % (36.0-47.0); Hemoglobin 13.3 g/dL (12.0-16.0); Mean Corpuscular HGB CONC 33.6 g/dL (32.0-36.0); Mean Corpuscular Hemoglobin 27.7 pg (27.0-31.0); Mean Corpuscular Volume 82.5 fL (78.0-98.0); Mean Platelet Volume 10.8 fL (7.4-10.4); Platelet Count 195 10x3/uL (130-400); RBC Distribution Width 12.7 % (11.5-14.5)
[2024-01-29 10:50] LABS: Anion Gap 12 mmol/L (10-20); BUN (Urea Nitrogen) 8 mg/dL (9.8-20.1); Calc. Creatinine Clearance 67 mL/min (70-130); Calcium 8.9 mg/dL (7.8-10.44); Carbon Dioxide 20 mmol/L (22-29); Chloride 105 mmol/L (98-107); Estimated GFR 61; Glucose 313 mg/dL (70-105); Magnesium 1.8 mg/dL (1.6-2.6); Potassium 3.7 mmol/L (3.5-5.1); Sodium 133 mmol/L (136-145)
[2024-01-29 11:02] LABS: Phosphorus 1.8 mg/dL (2.3-4.7)
[2024-01-29] MEDS: PHOS-NAK 1 PKT PACK PO SCH (11:47)
[2024-01-29] MEDS: Magnesium 2 GM/50 ML(in water) 2 GM in Premix 1 BAG IVPB SCH (11:47)
[2024-01-29] MEDS ORDERED: Dextrose 50% Abboject 50 ML SYRINGE SLOW IVP PRN (12:19)
[2024-01-29] MEDS ORDERED: Dextrose 5% in Water 1,000 ML IV PRN (12:19)
[2024-01-29] MEDS ORDERED: Glucagon 1 MG/ML KIT IM PRN (12:19)
[2024-01-29] MEDS: Ondansetron PF 4 MG/2 ML Vial IVP PRN (12:20)
[2024-01-29] MEDS: Insulin NPH Human Isophane 100 UNITS/ML (10 ML VIAL) SC SCH ×2 (14:00→20:17)
[2024-01-29] MEDS: NS 0.9% w/ 20 MEQ KCL 1,000 ML/1,000 ML BAG IV SCH (14:00)
[2024-01-29] MEDS: Insulin Regular, Human 100 UNIT/ML 10 ML VIAL SC PRN (17:14)
[2024-01-29] MEDS ORDERED: Insulin NPH Human Isophane 100 UNITS/ML (10 ML VIAL) SC SCH (21:00)
[2024-01-30 06:16] LABS: #Basophils Less than 0.03 10x3/uL (0.0-0.2); %Basophils 0.3 % (0.0-1.0); %Eosinophils 1.3 % (0.0-10.0); %Lymphocytes 45.3 % (21.0-51.0); %Monocytes 7.3 % (0.0-10.0); %Neutrophils 45.8 % (42.0-75.0); Hematocrit 37.1 % (36.0-47.0); Hemoglobin 12.1 g/dL (12.0-16.0); Mean Corpuscular HGB CONC 32.6 g/dL (32.0-36.0); Mean Corpuscular Volume 85.9 fL (78.0-98.0); Mean Platelet Volume 10.8 fL (7.4-10.4); Platelet Count 169 10x3/uL (130-400); RBC Distribution Width 12.8 % (11.5-14.5); Red Blood Cell (RBC) Count 4.32 mill/uL (4.20-5.40)
[2024-01-30 06:34] LABS: Anion Gap 12 mmol/L (10-20); BUN (Urea Nitrogen) 7 mg/dL (9.8-20.1); Calc. Creatinine Clearance 86 mL/min (70-130); Calcium 8.8 mg/dL (7.8-10.44); Carbon Dioxide 14 mmol/L (22-29); Chloride 113 mmol/L (98-107); Estimated GFR 83; Glucose 233 mg/dL (70-105); Magnesium 2.1 mg/dL (1.6-2.6); Phosphorus 3.1 mg/dL (2.3-4.7); Potassium 4.4 mmol/L (3.5-5.1); Sodium 135 mmol/L (136-145)
[2024-01-30] MEDS: Aspirin 81 mg Enteric Coated Tablet PO SCH (08:00)
[2024-01-30] MEDS: Insulin NPH Human Isophane 100 UNITS/ML (10 ML VIAL) SC SCH ×2 (10:17→20:36)
[2024-01-30] MEDS: Lactated Ringer's 1,000 ML IV SCH (10:20)
[2024-01-30] MEDS ORDERED: Insulin NPH Human Isophane 100 UNITS/ML (10 ML VIAL) SC SCH ×2 (15:13→21:00)
[2024-01-30] MEDS: Insulin Regular, Human 100 UNIT/ML 10 ML VIAL SC PRN ×2 (17:40→20:36)
[2024-01-31 07:10] LABS: Anion Gap 13 mmol/L (10-20); BUN (Urea Nitrogen) 13 mg/dL (9.8-20.1); Calc. Creatinine Clearance 63 mL/min (70-130); Calcium 9.3 mg/dL (7.8-10.44); Carbon Dioxide 21 mmol/L (22-29); Chloride 108 mmol/L (98-107); Estimated GFR 58; Glucose 315 mg/dL (70-105); Potassium 4.1 mmol/L (3.5-5.1); Sodium 138 mmol/L (136-145)
[2024-01-31] MEDS: Alogliptin 6.25 MG TAB PO SCH (08:56)
[2024-01-31] MEDS: Insulin NPH Human Isophane 100 UNITS/ML (10 ML VIAL) SC SCH ×2 (08:57→21:40)
[2024-01-31] MEDS ORDERED: Insulin NPH Human Isophane 100 UNITS/ML (10 ML VIAL) SC SCH (21:00)
[2024-02-01 05:15] VITALS: TEMP 97.8
[2024-02-01 06:19] LABS: Anion Gap 13 mmol/L (10-20); BUN (Urea Nitrogen) 18 mg/dL (9.8-20.1); Calc. Creatinine Clearance 65 mL/min (70-130); Calcium 9.9 mg/dL (7.8-10.44); Carbon Dioxide 23 mmol/L (22-29); Chloride 107 mmol/L (98-107); Estimated GFR 60; Glucose 204 mg/dL (70-105); Potassium 3.8 mmol/L (3.5-5.1); Sodium 139 mmol/L (136-145)
[2024-02-01 08:53] VITALS: BP 127/84
== END 2024-02-01 13:38 | disposition home or self-care (01) | DRG 638 ==
LOC: ERS 03:18 → IMCU/EMU 06:38 → SJJU 01-30 09:01
PROVIDERS: ADMIT Internal Medicine; ATTEND Internal Medicine
DX: E11.10 Type 2 diabetes mellitus with ketoacidosis without coma (principal); E87.1 Hypo-osmolality and hyponatremia; N17.9 Acute kidney failure, unspecified; I12.9 Hypertensive chronic kidney disease with stage 1 through stage 4 chronic kidney disease, or unspecified chronic kidney disease; E11.22 Type 2 diabetes mellitus with diabetic chronic kidney disease; E87.6 Hypokalemia; E83.42 Hypomagnesemia; E83.39 Other disorders of phosphorus metabolism; N18.2 Chronic kidney disease, stage 2 (mild); D72.819 Decreased white blood cell count, unspecified; K21.9 Gastro-esophageal reflux disease without esophagitis; F10.90 Alcohol use, unspecified, uncomplicated; R79.89 Other specified abnormal findings of blood chemistry; E11.65 Type 2 diabetes mellitus with hyperglycemia; Z79.4 Long term (current) use of insulin; Z79.899 Other long term (current) drug therapy; Z98.891 History of uterine scar from previous surgery; Z90.710 Acquired absence of both cervix and uterus; Z98.890 Other specified postprocedural states
CPT/HCPCS: 36415; 36416; 80048; 80053; 81001; 82010; 82805; 83036; 83735; 84100; 84484; 85025; 96374; J1650; J1815; J2405; J3475; J3480; J7120

== ENCOUNTER 2024-03-24 09:21 | Emergency (ER) | payer BC ==
[2024-03-24] MEDS ORDERED: Aspirin Chewable 81 MG TAB ONE (09:53)
[2024-03-24 10:14] LABS: #Basophils Less than 0.03 10x3/uL (0.0-0.2); %Basophils 0.4 % (0.0-1.0); %Eosinophils 1.2 % (0.0-10.0); %Lymphocytes 35.5 % (21.0-51.0); %Monocytes 5.8 % (0.0-10.0); %Neutrophils 56.9 % (42.0-75.0); Hematocrit 35.5 % (36.0-47.0); Hemoglobin 11.6 g/dL (12.0-16.0); Mean Corpuscular HGB CONC 32.7 g/dL (32.0-36.0); Mean Corpuscular Volume 85.7 fL (78.0-98.0); Platelet Count 237 10x3/uL (130-400); RBC Distribution Width 14.3 % (11.5-14.5); Red Blood Cell (RBC) Count 4.14 mill/uL (4.20-5.40)
[2024-03-24 10:32] LABS: ALT (SGPT) 21 U/L (8-55); AST (SGOT) 21 U/L (5-34); Albumin 4.1 g/dL (3.5-5.0); Alkaline Phosphatase 62 U/L (40-110); Anion Gap 15 mmol/L (10-20); BUN (Urea Nitrogen) 26 mg/dL (9.8-20.1); Bilirubin, Total 0.4 mg/dL (0.2-1.2); Calc. Creatinine Clearance 0 mL/min (70-130); Calcium 9.7 mg/dL (7.8-10.44); Carbon Dioxide 21 mmol/L (22-29); Chloride 108 mmol/L (98-107); Estimated GFR 58; Globulin 3.6 g/dL (2.4-3.5); Glucose 125 mg/dL (70-105); Protein, Total 7.7 g/dL (6.0-8.3); Sodium 140 mmol/L (136-145)
[2024-03-24 12:11] LABS: Troponin I 0.014 ng/mL (< 0.028)
[2024-03-24 13:46] LABS: Troponin I 0.014 ng/mL (< 0.028)
== END 2024-03-24 14:34 | disposition home or self-care (01) ==
LOC: ERS 09:21
DX: R07.9 Chest pain, unspecified (principal); I10 Essential (primary) hypertension; E11.9 Type 2 diabetes mellitus without complications; Z55.6 Problems related to health literacy
CPT/HCPCS: 36415; 36416; 71045; 80053; 84484; 85025; 93005